=== PATIENT | female | born 1990 | race Two or more races ===

== ENCOUNTER 2022-05-26 14:29 | Inpatient (IN) | payer OTHER ==
[2022-05-26 16:22] LABS: Appearance,Urine Clear (Clear); Bilirubin,Urine Negative (Negative); Blood,Urine Large (Negative); Color,Urine Light Yellow; Glucose,Urine (UA) 4+ (Negative); Ketones,Urine Negative (Negative); Leukocyte Esterase,Urine Large (Negative); Mucus,Urine Rare /hpf; Nitrite,Urine Negative (Negative); Protein,Urine Negative (Negative); RBC,Urine 64 /hpf (0-5); Specific Gravity,Urine 1.023 (1.001-1.035); Squamous Epithelial Cell,Urine 2 /hpf (0-4); Urobilinogen,Urine <2.0 mg/dL (<2.0); WBC,Urine 61 /hpf (0-5)
[2022-05-26] MEDS ORDERED: ACETAMINOPHEN TAB 500 MG TAB PO STA (17:32)
--- NOTE | 2022-05-26 17:32 | ED ---
General Adult HPI - General Source: patient Mode of arrival: ambulatory Limitations: no limitations <Deedee Porter - Last Filed: 05/26/22 19:10> <Milton Morgan - Last Filed: 05/27/22 00:17> - General Chief complaint: Dizziness Stated complaint: hypotension, rx change - History of Present Illness Initial comments: Patient is a pleasant 31-year-old female presenting to the emergency room at the [facility] [place] where she is currently staying to undergo intense counseling. She has been drinking drug free since 04/16/2022. 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 She is complaining of dizziness, headache and excessive bleeding on her menstrual cycle currently with large clots ongoing for the last 3 days. She is currently on Eliquis. 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 She reports that she has been advised that she has multiple blood clots including in her coronary vessels. In addition to her digoxin and Eliquis she is also on torsemide. She reports that she attempts to maintain good hydration however her client professional recommends that she is on a 2 L fluid restriction. She has been advised in the past that she should be wearing a LifeVest until she is able to obtain an LVAD and/or heart transplant if she is able to maintain her sobriety but at this time does not currently have a LifeVest intact. She does not have any implanted devices either. She denies any chest pain, shortness of breath, changes in mild lower extremity edema, abdominal pain, nausea, vomiting, dysuria or urinary frequency. She unfortunately has not been to this facility previously and now previous records are available for review. (Deedee Porter) - Related Data Home Medications Medication Instructions Recorded Confirmed Acetaminophen [Tylenol 8 Hour] 650 mg PO Q4H PRN MDD 1950MG 05/26/22 05/26/22 Apixaban [Eliquis] 5 mg PO BID 05/26/22 05/26/22 Calcium/Magnesium/Zinc/Vitamin D 1 tab PO TID PRN 05/26/22 05/26/22 Dapagliflozin Propanediol [Farxiga] 10 mg PO DAILY 05/26/22 05/26/22 Digoxin [Lanoxin] 125 mcg PO DAILY 05/26/22 05/26/22 Losartan Potassium [Cozaar] 25 mg PO DAILY 05/26/22 05/26/22 Spironolactone [Aldactone] 25 mg PO DAILY 05/26/22 05/26/22 Thiamine [Vitamin B-1] 100 mg PO DAILY 05/26/22 05/26/22 Torsemide [Demadex] 20 mg PO BID 05/26/22 05/26/22 guaiFENesin SYRUP 100MG/5ML 200 mg PO Q4H PRN 05/26/22 05/26/22 [Robitussin] Allergies Allergy/AdvReac Type Severity Reaction Status Date / Time No Known Allergies Allergy Verified 05/26/22 19:29 Review of Systems ROS Other: All systems not noted in ROS Statement are negative. <Deedee Porter - Last Filed: 05/26/22 19:10> ROS Other: All systems not noted in ROS Statement are negative. <Milton Morgan - Last Filed: 05/27/22 00:17> ROS Statement: Those systems with pertinent positive or pertinent negative responses have been documented in the HPI. Past Medical History Past Medical History: Heart Failure History of Any Multi-Drug Resistant Organisms: None Reported Past Surgical History: Section Past Psychological History: No Psychological Hx Reported Smoking Status: Current every day smoker Past Alcohol Use History: None Reported Past Drug Use History: None Reported <Deedee Porter - Last Filed: 05/26/22 19:10> - Past Family History Father Family Medical History: Unable to Obtain Mother Family Medical History: Unable to Obtain <Milton Morgan - Last Filed: 05/27/22 00:17> General Exam Limitations: no limitations General appearance: alert Head exam: Present: atraumatic, normocephalic, normal inspection Eye exam: Present: normal appearance, PERRL, EOMI. Absent: scleral icterus, conjunctival injection, nystagmus, periorbital swelling ENT exam: Present: normal exam, mucous membranes moist Neck exam: Present: normal inspection, full ROM Respiratory exam: Present: normal lung sounds bilaterally. Absent: respiratory distress, wheezes, rales, rhonchi, stridor Cardiovascular Exam: Present: regular rate, normal rhythm, normal heart sounds, systolic murmur. Absent: diastolic murmur, rubs, gallop, clicks GI/Abdominal exam: Present: soft, normal bowel sounds. Absent: distended, tenderness, guarding, rebound, rigid Extremities exam: Present: pedal edema (Trace bilateral chronic) Back exam: Present: normal inspection Neurological exam: Present: alert, oriented X3, CN II-XII intact Psychiatric exam: Present: normal affect, normal mood Skin exam: Present: warm, dry, intact, normal color. Absent: rash <Deedee Porter - Last Filed: 05/26/22 19:10> Course Vital Signs 05/26/22 05/26/22 05/26/22 14:34 17:23 18:10 Temperature 97.5 F L Pulse Rate 86 92 98 Respiratory 16 18 16 Rate Blood Pressure 121/68 111/71 O2 Sat by Pulse 100 100 100 Oximetry 05/26/22 18:36 Temperature Pulse Rate Respiratory Rate Blood Pressure 129/81 O2 Sat by Pulse Oximetry Medical Decision Making - Lab Data Result diagrams: 05/26/22 18:29 05/26/22 17:34 <Deedee Porter - Last Filed: 05/26/22 19:10> - Lab Data Result diagrams: 05/26/22 18:29 05/26/22 17:34 <Milton Morgan - Last Filed: 05/27/22 00:17> - Medical Decision Making 31-year-old female presenting to the emergency room with complaints of headache, dizziness and increased uterine bleeding during her menses with clots. Patient significant comorbidities of heart failure and thrombosis. On torsemide, digoxin and Eliquis. Will begin extensive workup given past medical history and current medications with EKG, CBC, CMP, magnesium, troponin, d- dimer, proBNP and digoxin level. Urinalysis already completed prior to evaluation by provider demonstrating abnormalities consistent with menstruation. No leukoesterase or bacteria. Will give Tylenol for headache. Will hold any other medications at this time until laboratory results are available. EKG shows sinus rhythm with possible left atrial enlargement and right ventricular conduction delay likely baseline however comparison not available. Clinical hemoglobin results of 6.3. Type and cross and repeat ordered however patient reports that she is a [employer] and is unsure if she will be agreeable for transfusion. We will include iron studies with karthik. Discussed potential for iron transfusion. Patient reports that she will discuss this further with her mother. Patient currently resting comfortably in stable condition hemodynamically stable. Patient moved from waiting room to fast track and placed on a heart monitor. CODE STATUS a full code verified. Risks of no blood transfusion with cardiovascular history when hemoglobin is less than 8 reviewed with patient. She is currently aware that fatal complications of anemia with comorbid cardiovascular implications could result in . Menstrual cycle duration currently and typical length and had saturation reviewed at length with patient. Patient with excessive bleeding amounts greater than 3 days of typical course of bleeding with no evidence of slowing. Will obtain ultrasound of the uterus transvaginally. Patient is agreeable for iron transfusions. Awaiting both proBNP and iron study results along with chest x-ray for further medication administration. Spoke with Glen Heller with [facility] regarding need for symptomatic anemia admission and pending workup. He is accepting of admission. Will place consult to [employer] along with cardiology for further evaluation. Case discussed discussed with Dr. Morgan who will follow pending test as indicated above and order iron and fluids as needed. (Deedee Porter) Patient was admitted but I did follow-up on laboratory studies. Iron studies are still pending at this time. Patient's transvaginal ultrasound is read as being unremarkable. There is a right ovarian cyst but no evidence of acute pelvic process. Patient's chest x-ray as interpreted by myself reveals no acute cardiopulmonary process, infiltrate. Patient's laboratory studies remained relatively stable with a slight decrease in hemoglobin to 6.1 on repeat labs. As stated above, iron studies are still pending at this time. Patient has remained hemodynamically stable here in the emergency department. Vitals are within acceptable limits. We will continue with admission at this time with evaluation by [employer]ATOR. We will hold her Eliquis at this time as well. Patient's a [employer] and therefore does not accept blood products. We'll continue to monitor closely. (Milton Morgan) - Lab Data Lab Results 05/26/22 05/26/22 05/26/22 Range/Units 15:57 15:57 17:34 WBC 7.2 (3.8-10.6) k/uL RBC 2.62 L (3.80-5.40) m/uL Hgb 6.3 L* (11.4-16.0) gm/dL Hct 20.2 L (34.0-46.0) % MCV 77.2 L (80.0-100.0) fL MCH 24.0 L (25.0-35.0) pg MCHC 31.1 (31.0-37.0) g/dL RDW 19.1 H (11.5-15.5) % Plt Count 288 (150-450) k/uL MPV 9.2 Neutrophils % 71 % Lymphocytes % 22 % Monocytes % 4 % Eosinophils % 1 % Basophils % 0 % Neutrophils # 5.1 (1.3-7.7) k/uL Lymphocytes # 1.6 (1.0-4.8) k/uL Monocytes # 0.3 (0-1.0) k/uL Eosinophils # 0.0 (0-0.7) k/uL Basophils # 0.0 (0-0.2) k/uL Hypochromasia Marked Anisocytosis Slight Microcytosis Moderate Sodium (137-145) mmol/L Potassium (3.5-5.1) mmol/L Chloride (98-107) mmol/L Carbon Dioxide (22-30) mmol/L Anion Gap mmol/L BUN (7-17) mg/dL Creatinine (0.52-1.04) mg/dL Est GFR (CKD-EPI)AfAm (>60 ml/min/1.73 sqM) Est GFR (CKD-EPI)NonAf (>60 ml/min/1.73 sqM) Glucose (74-99) mg/dL Calcium (8.4-10.2) mg/dL Magnesium (1.6-2.3) mg/dL Iron (50-170) ug/dL TIBC (228-460) ug/dL % Saturation (12.00-45.00) Transferrin (204.0-354.0) mg/dL Total Bilirubin (0.2-1.3) mg/dL AST (14-36) U/L ALT (4-34) U/L Alkaline Phosphatase (38-126) U/L Troponin I (0.000-0.034) ng/mL NT-Pro-B Natriuret Pep pg/mL Total Protein (6.3-8.2) g/dL Albumin (3.5-5.0) g/dL Urine Color Light Yellow Urine Appearance Clear (Clear) Urine pH 6.0 (5.0-8.0) Ur Specific [place] 1.023 (1.001-1.035) Urine Protein Negative (Negative) Urine Glucose (UA) 4+ H (Negative) Urine Ketones Negative (Negative) Urine Blood Large H (Negative) Urine Nitrite Negative (Negative) Urine Bilirubin Negative (Negative) Urine Urobilinogen <2.0 (<2.0) mg/dL Ur Leukocyte Esterase Large H (Negative) Urine RBC 64 H (0-5) /hpf Urine WBC 61 H (0-5) /hpf Ur Squamous Epith Cells 2 (0-4) /hpf Urine Mucus Rare H (None) /hpf Urine HCG, Qual Not Detected (Not Detectd) Digoxin ng/mL Blood Type Blood Type Confirm Blood Type Recheck Bld Type Recheck Status Antibody Screen Spec Expiration Date 05/26/22 05/26/22 05/26/22 Range/Units 17:34 17:34 17:34 WBC (3.8-10.6) k/uL RBC (3.80-5.40) m/uL Hgb (11.4-16.0) gm/dL Hct (34.0-46.0) % MCV (80.0-100.0) fL MCH (25.0-35.0) pg MCHC (31.0-37.0) g/dL RDW (11.5-15.5) % Plt Count (150-450) k/uL MPV Neutrophils % % Lymphocytes % % Monocytes % % Eosinophils % % Basophils % % Neutrophils # (1.3-7.7) k/uL Lymphocytes # (1.0-4.8) k/uL Monocytes # (0-1.0) k/uL Eosinophils # (0-0.7) k/uL Basophils # (0-0.2) k/uL Hypochromasia Anisocytosis Microcytosis Sodium 135 L (137-145) mmol/L Potassium 3.7 (3.5-5.1) mmol/L Chloride 102 (98-107) mmol/L Carbon Dioxide 27 (22-30) mmol/L Anion Gap 6 mmol/L BUN 13 (7-17) mg/dL Creatinine 0.54 (0.52-1.04) mg/dL Est GFR (CKD-EPI)AfAm >90 (>60 ml/min/1.73 sqM) Est GFR (CKD-EPI)NonAf >90 (>60 ml/min/1.73 sqM) Glucose 110 H (74-99) mg/dL Calcium 8.2 L (8.4-10.2) mg/dL Magnesium 2.1 (1.6-2.3) mg/dL Iron 17 L (50-170) ug/dL TIBC 477 H (228-460) ug/dL % Saturation 3.60 L (12.00-45.00) Transferrin 341.0 (204.0-354.0) mg/dL Total Bilirubin <0.1 L (0.2-1.3) mg/dL AST 28 (14-36) U/L ALT 23 (4-34) U/L Alkaline Phosphatase 86 (38-126) U/L Troponin I <0.012 (0.000-0.034) ng/mL NT-Pro-B Natriuret Pep 553 pg/mL Total Protein 5.8 L (6.3-8.2) g/dL Albumin 3.5 (3.5-5.0) g/dL Urine Color Urine Appearance (Clear) Urine pH (5.0-8.0) Ur Specific [place] (1.001-1.035) Urine Protein (Negative) Urine Glucose (UA) (Negative) Urine Ketones (Negative) Urine Blood (Negative) Urine Nitrite (Negative) Urine Bilirubin (Negative) Urine Urobilinogen (<2.0) mg/dL Ur Leukocyte Esterase (Negative) Urine RBC (0-5) /hpf Urine WBC (0-5) /hpf Ur Squamous Epith Cells (0-4) /hpf Urine Mucus (None) /hpf Urine HCG, Qual (Not Detectd) Digoxin 0.6 ng/mL Blood Type Blood Type Confirm Blood Type Recheck Bld Type Recheck Status Antibody Screen Spec Expiration Date 05/26/22 05/26/22 05/26/22 Range/Units 18:25 18:27 18:29 WBC 7.8 (3.8-10.6) k/uL RBC 2.59 L (3.80-5.40) m/uL Hgb 6.1 L* (11.4-16.0) gm/dL Hct 20.1 L (34.0-46.0) % MCV 77.4 L (80.0-100.0) fL MCH 23.5 L (25.0-35.0) pg MCHC 30.4 L (31.0-37.0) g/dL RDW 19.0 H (11.5-15.5) % Plt Count 303 (150-450) k/uL MPV 8.4 Neutrophils % 65 % Lymphocytes % 24 % Monocytes % 6 % Eosinophils % 1 % Basophils % 1 % Neutrophils # 5.1 (1.3-7.7) k/uL Lymphocytes # 1.9 (1.0-4.8) k/uL Monocytes # 0.5 (0-1.0) k/uL Eosinophils # 0.1 (0-0.7) k/uL Basophils # 0.1 (0-0.2) k/uL Hypochromasia Marked Anisocytosis Slight Microcytosis Slight Sodium (137-145) mmol/L Potassium (3.5-5.1) mmol/L Chloride (98-107) mmol/L Carbon Dioxide (22-30) mmol/L Anion Gap mmol/L BUN (7-17) mg/dL Creatinine (0.52-1.04) mg/dL Est GFR (CKD-EPI)AfAm (>60 ml/min/1.73 sqM) Est GFR (CKD-EPI)NonAf (>60 ml/min/1.73 sqM) Glucose (74-99) mg/dL Calcium (8.4-10.2) mg/dL Magnesium (1.6-2.3) mg/dL Iron (50-170) ug/dL TIBC (228-460) ug/dL % Saturation (12.00-45.00) Transferrin (204.0-354.0) mg/dL Total Bilirubin (0.2-1.3) mg/dL AST (14-36) U/L ALT (4-34) U/L Alkaline Phosphatase (38-126) U/L Troponin I (0.000-0.034) ng/mL NT-Pro-B Natriuret Pep pg/mL Total Protein (6.3-8.2) g/dL Albumin (3.5-5.0) g/dL Urine Color Urine Appearance (Clear) Urine pH (5.0-8.0) Ur Specific [place] (1.001-1.035) Urine Protein (Negative) Urine Glucose (UA) (Negative) Urine Ketones (Negative) Urine Blood (Negative) Urine Nitrite (Negative) Urine Bilirubin (Negative) Urine Urobilinogen (<2.0) mg/dL Ur Leukocyte Esterase (Negative) Urine RBC (0-5) /hpf Urine WBC (0-5) /hpf Ur Squamous Epith Cells (0-4) /hpf Urine Mucus (None) /hpf Urine HCG, Qual (Not Detectd) Digoxin ng/mL Blood Type O Positive Blood Type Confirm O Positive Blood Type Recheck No Previous Record Bld Type Recheck Status CABO Indicated Antibody Screen NEGATIVE Spec Expiration Date 05/29/2022 - 2326 - EKG Data EKG Comments: EKG completed at 1723 interpreted by me demonstrates sinus rhythm, possible left atrial enlargement, possible right ventricular conduction delay, ventricular rate 80 bpm, UT interval 175 ms, QRS duration 102 ms, QT/QTC 380/426 ms, PRT axes 25, -20, 49 (Deedee Porter) Disposition Is patient prescribed a controlled substance at d/c from ED?: No Time of Disposition: 19:12 <Deedee Proter - Last Filed: 05/26/22 19:10> <Milton Morgan - Last Filed: 05/27/22 00:17> Clinical Impression: Symptomatic anemia, Dysfunctional uterine bleeding Disposition: ADMITTED IP TO THIS HOSP Condition: Serious
[2022-05-26 17:40] LABS: Anisocytosis Slight; Basophils % (A) 0 %; Eosinophils % (A) 1 %; HCT 20.2 % (34.0-46.0); Hypochromasia Marked; Lymphocytes # (A) 1.6 k/uL (1.0-4.8); Lymphocytes % (A) 22 %; MCHC 31.1 g/dL (31.0-37.0); MCV 77.2 fL (80.0-100.0); Mean Platelet Volume 9.2; Microcytosis Moderate; Monocytes # (A) 0.3 k/uL (0-1.0); Monocytes % (A) 4 %; Neutrophils # (A) 5.1 k/uL (1.3-7.7); Neutrophils % (A) 71 %; Platelet Count 288 k/uL (150-450); RBC 2.62 m/uL (3.80-5.40); RDW 19.1 % (11.5-15.5); WBC 7.2 k/uL (3.8-10.6)
[2022-05-26 17:43] LABS: HGB 6.3 gm/dL (11.4-16.0)
[2022-05-26 18:09] LABS: ALT 23 U/L (4-34); AST 28 U/L (14-36); African American GFR (CKD) >90 (>60 ml/min/1.73 sqM); Albumin 3.5 g/dL (3.5-5.0); Alkaline Phosphatase 86 U/L (38-126); Anion Gap 6 mmol/L; Blood Urea Nitrogen 13 mg/dL (7-17); Calcium 8.2 mg/dL (8.4-10.2); Carbon Dioxide 27 mmol/L (22-30); Chloride 102 mmol/L (98-107); Digoxin 0.6 ng/mL; Glucose 110 mg/dL (74-99); Magnesium 2.1 mg/dL (1.6-2.3); Non-African American GFR(CKD) >90 (>60 ml/min/1.73 sqM); Potassium 3.7 mmol/L (3.5-5.1); Sodium 135 mmol/L (137-145); Total Bilirubin <0.1 mg/dL (0.2-1.3); Total Protein 5.8 g/dL (6.3-8.2)
[2022-05-26 18:59] LABS: Anisocytosis Slight; Basophils # (A) 0.1 k/uL (0-0.2); Basophils % (A) 1 %; Eosinophils # (A) 0.1 k/uL (0-0.7); Eosinophils % (A) 1 %; HCT 20.1 % (34.0-46.0); HGB 6.1 gm/dL (11.4-16.0); Hypochromasia Marked; Lymphocytes # (A) 1.9 k/uL (1.0-4.8); Lymphocytes % (A) 24 %; MCH 23.5 pg (25.0-35.0); MCHC 30.4 g/dL (31.0-37.0); MCV 77.4 fL (80.0-100.0); Mean Platelet Volume 8.4; Microcytosis Slight; Monocytes # (A) 0.5 k/uL (0-1.0); Monocytes % (A) 6 %; Neutrophils # (A) 5.1 k/uL (1.3-7.7); Neutrophils % (A) 65 %; Platelet Count 303 k/uL (150-450); RBC 2.59 m/uL (3.80-5.40); WBC 7.8 k/uL (3.8-10.6)
[2022-05-26] MEDS ORDERED: NALOXONE 0.4 MG/ML 1 ML VIAL IV PRN (18:59)
--- NOTE | 2022-05-26 19:36 | XR ---
EXAMINATION TYPE: XR chest 2V DATE OF EXAM: 05/26/2022 7:11 PM COMPARISON: Chest radiographs from TECHNIQUE: XR chest 2V Frontal and lateral views of the chest. CLINICAL INDICATION:Female, 31 years old with history of lightheaded; FINDINGS: Lungs/Pleura: There is no evidence of pleural effusion, focal consolidation, or pneumothorax. Pulmonary vascularity: Unremarkable. Heart/mediastinum: Cardiomediastinal silhouette is prominent in size. Musculoskeletal: No acute osseous pathology. IMPRESSION: 1. No acute cardiopulmonary disease/process. 2. Cardiomegaly
--- NOTE | 2022-05-26 19:37 | US ---
EXAMINATION TYPE: US transvaginal DATE OF EXAM: 05/26/2022 COMPARISON: NONE CLINICAL HISTORY: Prolonged uterine bleeding with excessive clots. Patient states she has been having her period for 8 days with excessive clots. TECHNIQUE: Transvaginal sonographic images of the pelvis were acquired. Date of LMP: 05/19/22 EXAM MEASUREMENTS: Uterus: 9.1 x 5.4 x 4.6 cm Endometrial Stripe: 0.7 cm Right Ovary: 4.6 x 4.4 x 3.2 cm Left Ovary: Not vis 1. Uterus: Anteverted wnl 2. Endometrium: wnl 3. Right Ovary: Cyst seen measuring 3.5 x 2.6 x 2.5cm 4. Left Ovary: Obscured by overlying bowel gas Spectral, color and waveform doppler imaging shows good arterial and venous flow within the ovaries ; there is no evidence for ovarian torsion. 5. Bilateral Adnexa: peristalsing bowel visualized in bilateral adnexas 6. Posterior cul-de-sac: wnl IMPRESSION: 1. No evidence for acute pelvic process. 2. Right ovarian cyst measuring up to 3.5 cm.
[2022-05-26] MEDS: ACETAMINOPHEN TAB 325 MG TAB PO PRN (21:41)
[2022-05-26 23:34] LABS: Iron 17 ug/dL (50-170); Total Iron Binding Capacity 477 ug/dL (228-460)
[2022-05-27] MEDS ORDERED: IRON DEXTRAN 100 MG/2 ML VIAL IV STA (00:38)
[2022-05-27] MEDS ORDERED: IRON DEXTRAN 1,000 MG in SODIUM CHLORIDE 0.9% 250 ML IV ONE (01:00)
[2022-05-27] MEDS: THIAMINE 100 MG TAB PO SCH (09:21)
[2022-05-27] MEDS: SPIRONOLACTONE 25 MG TAB PO SCH (09:21)
[2022-05-27] MEDS: LOSARTAN 25 MG TAB PO SCH (09:21)
[2022-05-27] MEDS: DIGOXIN 125 MCG TAB PO SCH (09:21)
[2022-05-27] MEDS: TORSEMIDE 20 MG TAB PO SCH ×2 (09:22→19:58)
[2022-05-27] MEDS: DAPAGLIFLOZIN PROPANEDIOL 10 MG TABLET PO SCH (09:22)
[2022-05-27 09:34] LABS: Anisocytosis Slight; Basophils % (A) 0 %; Eosinophils # (A) 0.1 k/uL (0-0.7); Eosinophils % (A) 1 %; Hypochromasia Marked; Lymphocytes # (A) 1.2 k/uL (1.0-4.8); Lymphocytes % (A) 25 %; MCH 23.4 pg (25.0-35.0); MCHC 30.2 g/dL (31.0-37.0); MCV 77.6 fL (80.0-100.0); Mean Platelet Volume 8.5; Microcytosis Moderate; Monocytes # (A) 0.2 k/uL (0-1.0); Monocytes % (A) 5 %; Neutrophils # (A) 3.1 k/uL (1.3-7.7); Neutrophils % (A) 65 %; Platelet Count 294 k/uL (150-450); RBC 2.46 m/uL (3.80-5.40); RDW 19.2 % (11.5-15.5); WBC 4.7 k/uL (3.8-10.6)
[2022-05-27 09:40] LABS: African American GFR (CKD) >90 (>60 ml/min/1.73 sqM); Anion Gap 2 mmol/L; Blood Urea Nitrogen 7 mg/dL (7-17); Calcium 7.9 mg/dL (8.4-10.2); Carbon Dioxide 26 mmol/L (22-30); Chloride 107 mmol/L (98-107); Glucose 99 mg/dL (74-99); HCT 19.1 % (34.0-46.0); Non-African American GFR(CKD) >90 (>60 ml/min/1.73 sqM); Potassium 3.8 mmol/L (3.5-5.1); Sodium 135 mmol/L (137-145)
[2022-05-27 10:06] LABS: HGB 5.8 gm/dL (11.4-16.0)
--- NOTE | 2022-05-27 11:02 | P.CRDCN ---
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 Nikki Mark and Dr. Jacky Jimenez out of [place]. She has a history of cardiomyopathy, "clot around my heart" for which she is on Eliquis, methamphetamine and alcohol abuse last used 04/16/2022. She has been worked up at [facility] and [facility] was also [facility] in [place] last year at which time she was diagnosed with cardiomyopathy. She denies history of coronary artery disease. She was initially ordered a LifeVest while being worked up for LVAD/heart transplant however needed to be clean prior to undergoing. Initially quit drinking and using meth however relapsed at which time she quit taking her Eliquis. In April she resumed her Eliquis. Since then she has been having issues with menorrhagia. She is currently at [facility] for rehab/therapy since the beginning of this month. She been complaining of dizziness, weakness, fatigue and overall not feeling well with some orthopnea and minimal abdominal bloating over the last few days. Upon presentation hemoglobin was 6.3 with a repeat of 6.1. She underwent transvaginal ultrasound which showed no evidence for acute pelvic process, right ovarian cyst measuring up to 3.5 cm. And given iron infusion. The patient is Sikh and does not accept blood products. She is currently on losartan, Farxiga, digoxin, torsemide and aldactone. Blood pressure is running on the low side. Labs show normal renal function. NT proBNP is 553. His x-ray shows no acute cardiopulmonary disease/process with cardiomegaly. On examination she is resting comfortably on a stretcher in the emergency department. She is overall feeling tired and somewhat weak. She is complaining of some dizziness. Denies any chest pain. Has not had any palpitations. Feeling dizzy and lightheaded but denies any syncope or near syncope. Denies any lower extremity edema however feels she is somewhat bloated in her abdomen which is where she typically holds fluid. Past Medical History Past Medical History: Heart Failure History of Any Multi-Drug Resistant Organisms: None Reported Past Surgical History: Section Past Psychological History: No Psychological Hx Reported Smoking Status: Current every day smoker Past Alcohol Use History: None Reported Additional Past Alcohol Use History / Comment(s): previous ETOH use and Meth- in rehab Past Drug Use History: None Reported - Past Family History Father Family Medical History: Unable to Obtain Mother Family Medical History: Unable to Obtain Medications and Allergies Home Medications Medication Instructions Recorded Confirmed Type Acetaminophen [Tylenol 8 Hour] 650 mg PO Q4H PRN MDD 1950MG 05/26/22 05/26/22 History Apixaban [Eliquis] 5 mg PO BID 05/26/22 05/26/22 History Calcium/Magnesium/Zinc/Vitamin D 1 tab PO TID PRN 05/26/22 05/26/22 History Dapagliflozin Propanediol [Farxiga] 10 mg PO DAILY 05/26/22 05/26/22 History Digoxin [Lanoxin] 125 mcg PO DAILY 05/26/22 05/26/22 History Losartan Potassium [Cozaar] 25 mg PO DAILY 05/26/22 05/26/22 History Spironolactone [Aldactone] 25 mg PO DAILY 05/26/22 05/26/22 History Thiamine [Vitamin B-1] 100 mg PO DAILY 05/26/22 05/26/22 History Torsemide [Demadex] 20 mg PO BID 05/26/22 05/26/22 History guaiFENesin SYRUP 100MG/5ML 200 mg PO Q4H PRN 05/26/22 05/26/22 History [Robitussin] Allergies Allergy/AdvReac Type Severity Reaction Status Date / Time No Known Allergies Allergy Verified 05/26/22 19:29 Physical Exam Vitals: Vital Signs Temp Pulse Pulse Resp BP BP Pulse Ox 05/27/22 09:14 87 18 98/62 100 05/27/22 04:00 98.3 F 81 18 96/61 100 05/27/22 02:00 81 18 05/27/22 00:00 97.9 F 90 18 99/59 100 05/26/22 18:36 129/81 05/26/22 18:10 98 16 100 05/26/22 17:23 92 18 111/71 100 05/26/22 14:34 97.5 F L 86 16 121/68 100 Intake and Output 05/26/22 05/27/22 05/27/22 22:59 06:59 14:59 Other: Voiding Method Toilet # Voids 1 1 Weight 76.204 kg PHYSICAL EXAMINATION: This is a 31-year-old female in no apparent distress at the time of my examination. HEENT: Head is atraumatic, normocephalic. Pupils are equal, round. Sclerae anicteric. Conjunctivae are clear. Mucous membranes of the mouth are moist. Neck is supple. There is no elevated jugular venous pressure. No carotid bruit is heard. CHEST EXAMINATION: Clear to auscultation bilaterally. No wheezes rales or rhonchi. Respirations even and nonlabored. HEART EXAMINATION: Heart regular, positive S1 and S2. No S3. No S4. With a soft systolic murmur. ABDOMEN: Soft, nontender. Bowel sounds are heard. No organomegaly noted. EXTREMITIES: 2+ peripheral pulses with no evidence of peripheral edema and no calf tenderness noted. NEUROLOGIC EXAMINATION: Patient is awake, alert and oriented x3. Results 05/27/22 09:19 05/27/22 09:19 Cardiac Enzymes 05/26/22 05/26/22 Range/Units 17:34 17:34 AST 28 (14-36) U/L Troponin I <0.012 (0.000-0.034) ng/mL CBC 05/26/22 05/26/22 Range/Units 17:34 18:29 WBC 7.2 7.8 (3.8-10.6) k/uL RBC 2.62 L 2.59 L (3.80-5.40) m/uL Hgb 6.3 L* 6.1 L* (11.4-16.0) gm/dL Hct 20.2 L 20.1 L (34.0-46.0) % Plt Count 288 303 (150-450) k/uL Comprehensive Metabolic Panel 05/26/22 Range/Units 17:34 Sodium 135 L (137-145) mmol/L Potassium 3.7 (3.5-5.1) mmol/L Chloride 102 (98-107) mmol/L Carbon Dioxide 27 (22-30) mmol/L BUN 13 (7-17) mg/dL Creatinine 0.54 (0.52-1.04) mg/dL Glucose 110 H (74-99) mg/dL Calcium 8.2 L (8.4-10.2) mg/dL AST 28 (14-36) U/L ALT 23 (4-34) U/L Alkaline Phosphatase 86 (38-126) U/L Total Protein 5.8 L (6.3-8.2) g/dL Albumin 3.5 (3.5-5.0) g/dL Current Medications Generic Name Dose Route Start Last Admin Trade Name Freq PRN Reason Stop Dose Admin Acetaminophen 650 mg 05/26/22 18:59 05/26/22 21:41 Acetaminophen Tab 325 Mg Tab PO 650 mg Q6HR PRN Administration Mild Pain or Fever > 100.5 Dapagliflozin 10 mg 05/27/22 09:00 05/27/22 09:22 Dapagliflozin Propanediol 10 Mg Tablet PO 10 mg DAILY PIERRE Administration Digoxin 125 mcg 05/27/22 09:00 05/27/22 09:21 Digoxin 125 Mcg Tab PO 125 mcg DAILY PIERRE Administration Losartan Potassium 25 mg 05/27/22 09:00 05/27/22 09:21 Losartan 25 Mg Tab PO 25 mg DAILY PIERRE Administration Naloxone HCl 0.2 mg 05/26/22 18:59 Naloxone 0.4 Mg/Ml 1 Ml Vial IV Q2M PRN Opioid Reversal Spironolactone 25 mg 05/27/22 09:00 05/27/22 09:21 Spironolactone 25 Mg Tab PO 25 mg DAILY PIERRE Administration Thiamine HCl 100 mg 05/27/22 09:00 05/27/22 09:21 Thiamine 100 Mg Tab PO 100 mg DAILY PIERRE Administration Torsemide 20 mg 05/27/22 09:00 05/27/22 09:22 Torsemide 20 Mg Tab PO 20 mg BID PIERRE Administration Intake and Output 05/26/22 05/27/22 05/27/22 22:59 06:59 14:59 Other: Voiding Method Toilet # Voids 1 1 Weight 76.204 kg 05/26/22 18:29 05/26/22 17:34 Assessment and Plan Assessment: #1 anemia secondary to menorrhagia, on Eliquis #2 history of cardiomyopathy, likely nonischemic #3 possible history of apical thrombus #4 substance abuse disorder, currently in remission Plan: From cardiology's perspective we will continue to hold Eliquis for now. Will obtain records from her primary phototypesetting equipment monitor as well as [facility] and [facility] in [place]. We'll obtain a 2-D echo with Doppler study to a ssess cardiac structure and function. Continue losartan, Aldactone, digoxin, and Farxiga as well as torsemide. She may benefit from the addition of beta dede however we will obtain records and monitor blood pressure. Discussed with the patient importance of blood transfusion the patient continues to decline at this time due to mormonism beliefs. Further recommendations to follow. ANESTHESIOLOGY TECH note has been reviewed, I agree with a documented findings and plan of care. Patient was seen and examined.
[2022-05-27] MEDS ORDERED: ONDANSETRON ODT 4 MG TAB PO PRN (13:44)
--- NOTE | 2022-05-27 13:56 | P.HPIM ---
History of Present Illness H&P Date: 05/27/22 This is a 31-year-old female with medical history significant for heart failure with low EF, reports of having multiple clots "around her heart", current daily smoker. She is anticoagulated with eliquis and currently on torsemide and digoxin. Maintained on 2L fluid restriction daily. Supposed to be wearing a lifevest pending LVAD/heart transplant once she is sober. Patient states she has been using IV drugs since around the age 24. She has 4 children, and has had miscarriage in the past. History of tubal ligation. She was diagnosed with cardiomyopathy about 1 year ago in [facility], and now follows with a ruling technician Dr Mark and Dr. Jimenez out of [place]. Has history of meth and alcohol abuse and is currently receiving treatment at [facility]. Has been sober since April 16, 2022. Patient presents to the hospital from [facility] rehab facility with concern for dizziness, headache, and excessive vaginal bleeding with clots which she is currently on her menstrual cycle. Patient states the clots have been going on for the last 3 days and has been soaking through her clothes. She stopped her eliquis and began taking it in April again. Patient states she had not had a menstrual period for 2 months prior to this episode of bleeding. Currently sexually active not using condoms and not on oral contraception. Onset of menses around age 10 and has been fairly regular since. Denies chest pain denies shortness of breath, no fever or chills. Transvaginal ultrasound is done showing no acute pelvic process, right ovarian cyst is measuring up to 3.5 cm. Chest xray is negative. EKG showing sinus rhythm with heart rate of 88, there is no specific T wave or ST changes. Patient presents with hemoglobin of 6.3 with platelet count of 288. Iron studies are completed showing iron 17, TIBC 477, transferrin 344. Troponin is negative and proBNP 553. Suspect dizziness and lightheadedness are secondary to acute blood loss. Blood pressure 99/61. Patient received 1 dose of IV iron in the EC. She is a Jehovahs Witness and does not accept blood products. IV ferrlecit x 2 more days has been ordered and patient will need to be on oral ferrous sulfate on discharge. She has some dizziness while ambulating. REVIEW OF SYSTEMS: CONSTITUTIONAL: No fever, no malaise, no fatigue. HEENT: No recent visual problems or hearing problems. Denied any sore throat. CARDIOVASCULAR: No chest pain, orthopnea, PND, no palpitations, no syncope. PULMONARY: No shortness of breath, no cough, no hemoptysis. GASTROINTESTINAL: No diarrhea, no nausea, no vomiting, no abdominal pain. NEUROLOGICAL: No headaches, no weakness, no numbness. HEMATOLOGICAL: Denies any bleeding or petechiae. GENITOURINARY: Denies any burning micturition, frequency, or urgency. Reports menstrual period with clots and excessive bleeding. MUSCULOSKELETAL/RHEUMATOLOGICAL: Denies any joint pain, swelling, or any muscle pain. ENDOCRINE: Denies any polyuria or polydipsia. The rest of the 14-point review of systems is negative. PHYSICAL EXAMINATION: GENERAL: The patient is alert and oriented x3, not in any acute distress. Well developed, well nourished. HEENT: Pupils are round and equally reacting to light. EOMI. No scleral icterus. No conjunctival pallor. Normocephalic, atraumatic. No pharyngeal erythema. No thyromegaly. CARDIOVASCULAR: S1 and S2 present. No murmurs, rubs, or gallops. PULMONARY: Chest is clear to auscultation, no wheezing or crackles. ABDOMEN: Soft, nontender, nondistended, normoactive bowel sounds. No palpable organomegaly. MUSCULOSKELETAL: No joint swelling or deformity. EXTREMITIES: No cyanosis, clubbing, or pedal edema. NEUROLOGICAL: Gross neurological examination did not reveal any focal deficits. SKIN: No rashes. Assessment and plan Assessment Dizziness lightheadedness secondary to acute blood loss Anemia microcytic secondary to menorrhagia on eliquis Menorrhagia History of cardiomyopathy, unknown EF at this time Possible history of apical thrombus Substance abuse disorder currently maintaining sobriety Daily tobacco use DVT prophylaxis: Eliquis currently on hold secondary to anemia GI prophylaxis: Protonix Full Code Plan Refusing blood products risks were discussed in detail with patient IV ferrlecit x 2 days Cushion Worker consultation Continue digoxin, spironolactone, torsemide Continue with 2L flluid restriction Cardiology consultation Check qualitative HCG level. The impression and plan of care has been dictated by Lizett Mariee, Nurse Practitioner as directed. Dr. Kimberli MD I have performed a history and physical examination and medical decision making of this patient, discussed the same with the dictator, and agree with the dictators assessment and plan as written, documented as a scribe. Based on total visit time, I have performed more than 50% of this visit. Past Medical History Past Medical History: Heart Failure History of Any Multi-Drug Resistant Organisms: None Reported Past Surgical History: Section Past Psychological History: No Psychological Hx Reported Smoking Status: Current every day smoker Past Alcohol Use History: None Reported Additional Past Alcohol Use History / Comment(s): previous ETOH use and Meth- in rehab Past Drug Use History: None Reported - Past Family History Father Family Medical History: Unable to Obtain Mother Family Medical History: Unable to Obtain Medications and Allergies Home Medications Medication Instructions Recorded Confirmed Type Acetaminophen [Tylenol 8 Hour] 650 mg PO Q4H PRN MDD 1950MG 05/26/22 05/26/22 History Apixaban [Eliquis] 5 mg PO BID 05/26/22 05/26/22 History Calcium/Magnesium/Zinc/Vitamin D 1 tab PO TID PRN 05/26/22 05/26/22 History Dapagliflozin Propanediol [Farxiga] 10 mg PO DAILY 05/26/22 05/26/22 History Digoxin [Lanoxin] 125 mcg PO DAILY 05/26/22 05/26/22 History Losartan Potassium [Cozaar] 25 mg PO DAILY 05/26/22 05/26/22 History Spironolactone [Aldactone] 25 mg PO DAILY 05/26/22 05/26/22 History Thiamine [Vitamin B-1] 100 mg PO DAILY 05/26/22 05/26/22 History Torsemide [Demadex] 20 mg PO BID 05/26/22 05/26/22 History guaiFENesin SYRUP 100MG/5ML 200 mg PO Q4H PRN 05/26/22 05/26/22 History [Robitussin] Allergies Allergy/AdvReac Type Severity Reaction Status Date / Time No Known Allergies Allergy Verified 05/26/22 19:29 Physical Exam Vitals: Vital Signs Temp Pulse Pulse Resp BP BP Pulse Ox 05/27/22 04:00 98.3 F 81 18 96/61 100 05/27/22 02:00 81 18 05/27/22 00:00 97.9 F 90 18 99/59 100 05/26/22 18:36 129/81 05/26/22 18:10 98 16 100 05/26/22 17:23 92 18 111/71 100 05/26/22 14:34 97.5 F L 86 16 121/68 100 Intake and Output 05/26/22 05/27/22 05/27/22 22:59 06:59 14:59 Other: Voiding Method Toilet # Voids 1 1 Weight 76.204 kg Results CBC & Chem 7: 05/27/22 09:19 05/27/22 09:19 Labs: Abnormal Lab Results - Last 24 Hours (Table) 05/26/22 05/26/22 05/26/22 Range/Units 15:57 17:34 17:34 RBC 2.62 L (3.80-5.40) m/uL Hgb 6.3 L* (11.4-16.0) gm/dL Hct 20.2 L (34.0-46.0) % MCV 77.2 L (80.0-100.0) fL MCH 24.0 L (25.0-35.0) pg MCHC (31.0-37.0) g/dL RDW 19.1 H (11.5-15.5) % Sodium 135 L (137-145) mmol/L Glucose 110 H (74-99) mg/dL Calcium 8.2 L (8.4-10.2) mg/dL Iron 17 L (50-170) ug/dL TIBC 477 H (228-460) ug/dL % Saturation 3.60 L (12.00-45.00) Total Bilirubin <0.1 L (0.2-1.3) mg/dL Total Protein 5.8 L (6.3-8.2) g/dL Urine Glucose (UA) 4+ H (Negative) Urine Blood Large H (Negative) Ur Leukocyte Esterase Large H (Negative) Urine RBC 64 H (0-5) /hpf Urine WBC 61 H (0-5) /hpf Urine Mucus Rare H (None) /hpf 05/26/22 Range/Units 18:29 RBC 2.59 L (3.80-5.40) m/uL Hgb 6.1 L* (11.4-16.0) gm/dL Hct 20.1 L (34.0-46.0) % MCV 77.4 L (80.0-100.0) fL MCH 23.5 L (25.0-35.0) pg MCHC 30.4 L (31.0-37.0) g/dL RDW 19.0 H (11.5-15.5) % Sodium (137-145) mmol/L Glucose (74-99) mg/dL Calcium (8.4-10.2) mg/dL Iron (50-170) ug/dL TIBC (228-460) ug/dL % Saturation (12.00-45.00) Total Bilirubin (0.2-1.3) mg/dL Total Protein (6.3-8.2) g/dL Urine Glucose (UA) (Negative) Urine Blood (Negative) Ur Leukocyte Esterase (Negative) Urine RBC (0-5) /hpf Urine WBC (0-5) /hpf Urine Mucus (None) /hpf Microbiology - Last 24 Hours (Table) 05/26/22 15:57 Urine Culture - Preliminary Urine,Voided Assessment and Plan Time with Patient: Greater than 30
[2022-05-27] MEDS: ACETAMINOPHEN TAB 325 MG TAB PO PRN (15:01)
[2022-05-27] MEDS: NICOTINE 14MG/24HR PATCH TRANSDERM SCH (15:02)
[2022-05-28 04:28] LABS: Anisocytosis Slight; HCT 23.8 % (34.0-46.0); Hypochromasia Marked; MCH 25.4 pg (25.0-35.0); MCHC 31.6 g/dL (31.0-37.0); MCV 80.4 fL (80.0-100.0); Mean Platelet Volume 8.7; Microcytosis Slight; Platelet Count 298 k/uL (150-450); Poikilocytosis Slight; RBC 2.96 m/uL (3.80-5.40); RDW 18.5 % (11.5-15.5); WBC 7.6 k/uL (3.8-10.6)
[2022-05-28 04:40] LABS: HGB 7.5 gm/dL (11.4-16.0)
[2022-05-28 08:35] LABS: Anisocytosis Slight; Basophils % (A) 0 %; Eosinophils # (A) 0.1 k/uL (0-0.7); Eosinophils % (A) 1 %; HCT 24.7 % (34.0-46.0); HGB 7.5 gm/dL (11.4-16.0); Hypochromasia Marked; Lymphocytes # (A) 0.8 k/uL (1.0-4.8); Lymphocytes % (A) 13 %; MCH 24.3 pg (25.0-35.0); MCHC 30.2 g/dL (31.0-37.0); MCV 80.6 fL (80.0-100.0); Mean Platelet Volume 8.5; Microcytosis Slight; Monocytes # (A) 0.3 k/uL (0-1.0); Monocytes % (A) 4 %; Neutrophils # (A) 5.4 k/uL (1.3-7.7); Neutrophils % (A) 80 %; Platelet Count 305 k/uL (150-450); Poikilocytosis Slight; RBC 3.07 m/uL (3.80-5.40); RDW 18.8 % (11.5-15.5); WBC 6.7 k/uL (3.8-10.6)
[2022-05-28 08:54] LABS: African American GFR (CKD) >90 (>60 ml/min/1.73 sqM); Anion Gap 3 mmol/L; Blood Urea Nitrogen 8 mg/dL (7-17); Calcium 8.2 mg/dL (8.4-10.2); Carbon Dioxide 26 mmol/L (22-30); Chloride 107 mmol/L (98-107); Glucose 134 mg/dL (74-99); Non-African American GFR(CKD) >90 (>60 ml/min/1.73 sqM); Sodium 136 mmol/L (137-145)
[2022-05-28] MEDS: SODIUM FERRIC GLUCONAT-SUCROSE 125 MG in SODIUM CHLORIDE 0.9% 100 ML IVPB SCH (10:29)
[2022-05-28] MEDS: THIAMINE 100 MG TAB PO SCH (10:30)
[2022-05-28] MEDS: LOSARTAN 25 MG TAB PO SCH (10:30)
[2022-05-28] MEDS: DIGOXIN 125 MCG TAB PO SCH (10:30)
[2022-05-28] MEDS: ACETAMINOPHEN TAB 325 MG TAB PO PRN ×2 (10:30→16:45)
[2022-05-28] MEDS: NICOTINE 14MG/24HR PATCH TRANSDERM SCH (10:30)
[2022-05-28] MEDS: SPIRONOLACTONE 25 MG TAB PO SCH (10:30)
[2022-05-28] MEDS: DAPAGLIFLOZIN PROPANEDIOL 10 MG TABLET PO SCH (10:30)
[2022-05-28] MEDS: TORSEMIDE 20 MG TAB PO SCH ×2 (10:30→19:33)
--- NOTE | 2022-05-28 13:35 | P.PN ---
Subjective Progress Note Date: 05/28/22 This is a pleasant 31-year-old female patient who follows with a Dr. Nikki Mark and Dr. Jacky Jimenez out of [place]. She has a history of cardiomyopathy, "clot around my heart" for which she is on Eliquis, methamphetamine and alcohol abuse last used 04/16/2022. She has been worked up at [facility] and [facility] was also [facility] in [place] last year at which time she was diagnosed with cardiomyopathy. She denies history of coronary artery disease. She was initially ordered a LifeVest while being worked up for LVAD/heart transplant however needed to be clean prior to undergoing. Initially quit drinking and using meth however relapsed at which time she quit taking her Eliquis. In April she resumed her Eliquis. Since then she has been having issues with menorrhagia. She is currently at [place] for rehab/therapy since the beginning of this month. She been complaining of dizziness, weakness, fatigue and overall not feeling well with some orthopnea and minimal abdominal bloating over the last few days. Upon presentation hemoglobin was 6.3 with a repeat of 6.1. She underwent transvaginal ultrasound which showed no evidence for acute pelvic process, right ovarian cyst measuring up to 3.5 cm. And given iron infusion. The patient is Yarsani and does not accept blood products. She is currently on losartan, Farxiga, digoxin, torsemide and aldactone. Blood pressure is running on the low side. Labs show normal renal function. NT proBNP is 553. His x-ray shows no acute cardiopulmonary disease/process with cardiomegaly. On examination she is resting comfortably on a stretcher in the emergency department. She is overall feeling tired and somewhat weak. She is complaining of some dizziness. Denies any chest pain. Has not had any palpitations. Feeling dizzy and lightheaded but denies any syncope or near syncope. Denies any lower extremity edema however feels she is somewhat bloated in her abdomen which is where she typically holds fluid. 05/28/2022 She was seen and examined resting calmly in bed. She did end up receiving one unit of packed red cells and is feeling quite a bit better today. Records revi ewed from [facility] and she did have echocardiogram that showed multiple thrombi in the LV with a follow-up echo showing a moderately sized thrombus. Most recent echo was in August and showed an ejection fraction of around 10%. She's apparently been tried on a beta dede in the past and had issues with hypotension. Blood pressure has been stable running around 100-105 systolic and heart rate has been in the 80s. Repeat hemoglobin this morning was 7.5. Objective - Vital Signs Vital signs: Vital Signs Temp 97.7 F 05/28/22 08:00 Pulse 84 05/28/22 08:00 Resp 16 05/28/22 08:00 BP 103/51 05/28/22 08:00 Pulse Ox 98 05/28/22 08:54 FiO2 Intake & Output 05/27/22 05/28/22 05/28/22 18:59 06:59 18:59 Intake Total 550 420 Balance 550 420 Intake: Oral 240 420 Blood Product 310 Rc As-1 Unit 310 [id number] Other: Voiding Method Toilet Toilet # Voids 2 - Exam PHYSICAL EXAMINATION: This is a 31-year-old female in no apparent distress at the time of my examination. HEENT: Head is atraumatic, normocephalic. Pupils are equal, round. Sclerae anicteric. Conjunctivae are clear. Mucous membranes of the mouth are moist. Neck is supple. There is no elevated jugular venous pressure. No carotid bruit is h eard. CHEST EXAMINATION: Clear to auscultation bilaterally. No wheezes rales or rhonchi. Respirations even and nonlabored. HEART EXAMINATION: Heart regular, positive S1 and S2. No S3. No S4. With a soft systolic murmur. ABDOMEN: Soft, nontender. Bowel sounds are heard. No organomegaly noted. EXTREMITIES: 2+ peripheral pulses with no evidence of peripheral edema and no calf tenderness noted. NEUROLOGIC EXAMINATION: Patient is awake, alert and oriented x3. - Labs CBC & Chem 7: 05/28/22 08:01 05/28/22 08:01 Labs: Abnormal Lab Results - Last 24 Hours (Table) 05/26/22 05/28/22 05/28/22 Range/Units 18:27 04:16 08:01 RBC 2.96 L 3.07 L (3.80-5.40) m/uL Hgb 7.5 L D 7.5 L (11.4-16.0) gm/dL Hct 23.8 L 24.7 L (34.0-46.0) % MCH 24.3 L (25.0-35.0) pg MCHC 30.2 L (31.0-37.0) g/dL RDW 18.5 H 18.8 H (11.5-15.5) % Lymphocytes # 0.8 L (1.0-4.8) k/uL Sodium (137-145) mmol/L Glucose (74-99) mg/dL Calcium (8.4-10.2) mg/dL Crossmatch See Detail 05/28/22 Range/Units 08:01 RBC (3.80-5.40) m/uL Hgb (11.4-16.0) gm/dL Hct (34.0-46.0) % MCH (25.0-35.0) pg MCHC (31.0-37.0) g/dL RDW (11.5-15.5) % Lymphocytes # (1.0-4.8) k/uL Sodium 136 L (137-145) mmol/L Glucose 134 H (74-99) mg/dL Calcium 8.2 L (8.4-10.2) mg/dL Crossmatch Microbiology - Last 24 Hours (Table) 05/26/22 15:57 Urine Culture - Final Urine,Voided Strep agalactiae - (group b) Assessment and Plan Assessment: #1 anemia secondary to menorrhagia, on Eliquis #2 history of cardiomyopathy, likely nonischemic #3 possible history of apical thrombus #4 substance abuse disorder, currently in remission Plan: From cardiology's perspective we will continue to hold Eliquis for now. We'll obtain a 2-D echo with Doppler study to assess cardiac structure and function. Continue losartan, Aldactone, digoxin, and Farxiga as well as torsemide. Depending on the blood pressure tomorrow we may consider adding low-dose Toprol. Further recommendations to follow. EMERGENCY MEDICINE SPECIALIST note has been reviewed, I agree with a documented findings and plan of care. Patient was seen and examined.
--- NOTE | 2022-05-28 14:21 | P.PN ---
Subjective Progress Note Date: 05/28/22 This is a 31-year-old female with medical history significant for heart failure with low EF, reports of having multiple clots "around her heart", current daily smoker. She is anticoagulated with eliquis and currently on torsemide and digoxin. Maintained on 2L fluid restriction daily. Supposed to be wearing a lifevest pending LVAD/heart transplant once she is sober. Patient states she has been using IV drugs since around the age 24. She has 4 children, and has had miscarriage in the past. History of tubal ligation. She was diagnosed with cardiomyopathy about 1 year ago in [facility], and now follows with a director biology Dr Mark and Dr. Jimenez out of [place]. Has history of meth and alcohol abuse and is currently receiving treatment at [facility]. Has been sober since April 16, 2022. Patient presents to the hospital from [facility] rehab facility with concern for dizziness, headache, and excessive vaginal bleeding with clots which she is currently on her menstrual cycle. Patient states the clots have been going on for the last 3 days and has been soaking through her clothes. She stopped her eliquis and began taking it in April again. Patient states she had not had a menstrual period for 2 months prior to this episode of bleeding. Currently sexually active not using condoms and not on oral contraception. Onset of menses around age 10 and has been fairly regular since. Denies chest pain denies shortness of breath, no fever or chills. Transvaginal ultrasound is done showing no acute pelvic process, right ovarian cyst is measuring up to 3.5 cm. Chest xray is negative. EKG showing sinus rhythm with heart rate of 88, there is no specific T wave or ST changes. Patient presents with hemoglobin of 6.3 with platelet count of 288. Iron studies are completed showing iron 17, TIBC 477, transferrin 344. Troponin is negative and proBNP 553. Suspect dizziness and lightheadedness are secondary to acute blood loss. Blood pressure 99/61. Patient received 1 dose of IV iron in the EC. She is a Jehovahs Witness and does not accept blood products. IV ferrlecit x 2 more days has been ordered and patient will need to be on oral ferrous sulfate on discharge. She has some dizziness while ambulating. 05/28/2022 Patient is evaluated today on medical floor. Status post 1 unit of packed red blood cells and hemoglobin has improved to 7.5. She is receiving IV iron. Overall feeling better. Cardiology has evaluated the patient. Echocardiogram is pending at this time. Patient will be monitored off eliquis for now. Reports received from [facility] showing an EF of 10% on most recent echo in August of this year. Also showing moderately sized thrombus LV. Blood pressure improved. Further recommendations being made by cardiology pending echo report. Review of Systems Constitutional: Denied any fatigue denied any fever. Cardio vascular: denied any chest pain, palpitations Gastrointestinal: denied any nausea, vomiting, diarrhea Pulmonary: Denied any shortness of breath cough Neurologic denied any new focal deficits All inpatient medications were reviewed and appropriate changes in these medications as dictated in the interval history and assessment and plan. PHYSICAL EXAMINATION: GENERAL: The patient is alert and oriented x3, not in any acute distress. Well developed, well nourished. HEENT: Pupils are round and equally reacting to light. EOMI. No scleral icterus. No conjunctival pallor. Normocephalic, atraumatic. No pharyngeal erythema. No thyromegaly. CARDIOVASCULAR: S1 and S2 present. No murmurs, rubs, or gallops. PULMONARY: Chest is clear to auscultation, no wheezing or crackles. ABDOMEN: Soft, nontender, nondistended, normoactive bowel sounds. No palpable organomegaly. MUSCULOSKELETAL: No joint swelling or deformity. EXTREMITIES: No cyanosis, clubbing, or pedal edema. NEUROLOGICAL: Gross neurological examination did not reveal any focal deficits. SKIN: No rashes. Assessment and plan Assessment Dizziness lightheadedness secondary to acute blood loss Anemia microcytic secondary to menorrhagia on eliquis Menorrhagia History of cardiomyopathy pending echocardiogram Possible history of apical thrombus Substance abuse disorder currently maintaining sobriety Daily tobacco use DVT prophylaxis: Eliquis currently on hold secondary to anemia GI prophylaxis: Protonix Full Code Plan Status post 1 unit PRBC IV ferrlecit x 2 days Surgical Supplies Sterilizer consultation pending Continue digoxin, spironolactone, torsemide Continue with 2L flluid restriction Echocardiogram pending [facility]iology [facility] The impression and plan of care has been dictated by Lizett Mariee Nurse Practitioner as directed. Dr. Kimberli MD I have performed a history and physical examination and medical decision making of this patient, discussed the same with the dictator, and agree with the dictators assessment and plan as written, documented as a scribe. Based on total visit time, I have performed more than 50% of this visit. Objective - Vital Signs Vital signs: Vital Signs Temp 98.0 F 05/28/22 12:00 Pulse 85 05/28/22 12:00 Resp 16 05/28/22 12:00 BP 108/71 05/28/22 12:00 Pulse Ox 100 05/28/22 12:00 FiO2 Intake & Output 05/27/22 05/28/22 05/28/22 18:59 06:59 18:59 Intake Total 550 600 Balance 550 600 Intake: Oral 240 600 Blood Product 310 Rc As-1 Unit 310 [id number] Other: Voiding Method Toilet Toilet # Voids 2 - Labs CBC & Chem 7: 05/28/22 08:01 05/28/22 08:01 Labs: Abnormal Lab Results - Last 24 Hours (Table) 05/26/22 05/28/22 05/28/22 Range/Units 18:27 04:16 08:01 RBC 2.96 L 3.07 L (3.80-5.40) m/uL Hgb 7.5 L D 7.5 L (11.4-16.0) gm/dL Hct 23.8 L 24.7 L (34.0-46.0) % MCH 24.3 L (25.0-35.0) pg MCHC 30.2 L (31.0-37.0) g/dL RDW 18.5 H 18.8 H (11.5-15.5) % Lymphocytes # 0.8 L (1.0-4.8) k/uL Sodium (137-145) mmol/L Glucose (74-99) mg/dL Calcium (8.4-10.2) mg/dL Crossmatch See Detail 05/28/22 Range/Units 08:01 RBC (3.80-5.40) m/uL Hgb (11.4-16.0) gm/dL Hct (34.0-46.0) % MCH (25.0-35.0) pg MCHC (31.0-37.0) g/dL RDW (11.5-15.5) % Lymphocytes # (1.0-4.8) k/uL Sodium 136 L (137-145) mmol/L Glucose 134 H (74-99) mg/dL Calcium 8.2 L (8.4-10.2) mg/dL Crossmatch Microbiology - Last 24 Hours (Table) 05/26/22 15:57 Urine Culture - Final Urine,Voided Strep agalactiae - (group b) Assessment and Plan Time with Patient: Less than 30
--- NOTE | 2022-05-28 15:56 | P.OBCN ---
History of Present Illness Consult date: 05/28/22 Reason for consult: menorrhagia, other (Acute anemia) History of present illness: As noted in previous documentation, the patient has a known history of cardiac disease and cardiomyopathy with roughly 10% ejection fraction pending echocardiogram done at this hospital. She also is in treatment for substance abuse at [facility]. Given her cardiac condition and history of blood clots, she has been placed on anticoagulation, specifically Eliquis. She otherwise is a 5 para [id number] who had 4 previous deliveries last of which included tubal ligation which is her form of contraception. She essentially active at this time. She reports no history of gynecologic concerns or issues. Her cycles have always been relatively regular and did not use to be significantly heavy until she was placed on anticoagulation. This is continued to get worse and worse over the course of time until she had this most recent cycle which time she is bleeding significantly heavily and prompted a trip to the emergency department. Since being in the hospital, she has had her anticoagulation held and the bleeding has significantly decreased. Pelvic ultrasound was entirely normal. She additionally allowed for 1 unit of packed red blood cells and feels significantly better since that time. Obstetrical history: 5 para 4014 with 4 term deliveries and one early miscarriage. Method of contraception is tubal ligation. Gynecologic history: Unremarkable per the patient with no history of any infections to include STDs and Pap smears have been normal his historically. Past Medical History Past Medical History: Heart Failure History of Any Multi-Drug Resistant Organisms: None Reported Past Surgical History: Section Past Psychological History: No Psychological Hx Reported Smoking Status: Current every day smoker Past Alcohol Use History: None Reported Additional Past Alcohol Use History / Comment(s): previous ETOH use and Meth- in rehab Past Drug Use History: None Reported - Past Family History Father Family Medical History: Unable to Obtain Mother Family Medical History: Unable to Obtain Medications and Allergies Home Medications Medication Instructions Recorded Confirmed Type Acetaminophen [Tylenol 8 Hour] 650 mg PO Q4H PRN MDD 1950MG 05/26/22 05/26/22 History Apixaban [Eliquis] 5 mg PO BID 05/26/22 05/26/22 History Calcium/Magnesium/Zinc/Vitamin D 1 tab PO TID PRN 05/26/22 05/26/22 History Dapagliflozin Propanediol [Farxiga] 10 mg PO DAILY 05/26/22 05/26/22 History Digoxin [Lanoxin] 125 mcg PO DAILY 05/26/22 05/26/22 History Losartan Potassium [Cozaar] 25 mg PO DAILY 05/26/22 05/26/22 History Spironolactone [Aldactone] 25 mg PO DAILY 05/26/22 05/26/22 History Thiamine [Vitamin B-1] 100 mg PO DAILY 05/26/22 05/26/22 History Torsemide [Demadex] 20 mg PO BID 05/26/22 05/26/22 History guaiFENesin SYRUP 100MG/5ML 200 mg PO Q4H PRN 05/26/22 05/26/22 History [Robitussin] Allergies Allergy/AdvReac Type Severity Reaction Status Date / Time No Known Allergies Allergy Verified 05/26/22 19:29 Exam Vital Signs Temp Pulse Pulse Pulse Resp BP BP 05/28/22 12:00 98.0 F 85 16 05/28/22 08:54 05/28/22 08:00 97.7 F 84 16 05/28/22 03:38 98.3 F 89 16 101/63 05/28/22 00:00 97.9 F 91 16 102/64 05/27/22 23:46 98.1 F 79 16 96/61 05/27/22 20:26 98.2 F 83 16 103/66 05/27/22 20:06 98 F 85 18 106/70 05/27/22 20:00 98.2 F 84 18 109/71 BP Pulse Ox 05/28/22 12:00 108/71 100 05/28/22 08:54 98 05/28/22 08:00 103/51 100 05/28/22 03:38 100 05/28/22 00:00 98 05/27/22 23:46 99 05/27/22 20:26 100 05/27/22 20:06 100 05/27/22 20:00 100 Intake and Output 05/28/22 05/28/22 05/28/22 06:59 14:59 22:59 Intake Total 310 600 Balance 310 600 Intake: Oral 600 Blood Product 310 Rc As-1 Unit 310 [id number] Other: Voiding Method Toilet Toilet # Voids 2 In general this is a well-developed well-nourished woman in no acute distress. Her heart and lung exams are deferred to the medical team. Her abdomen is nondistended, soft, nontender, without any palpable masses. Her extremities are without cyanosis, clubbing or edema and are nontender to palpation bilaterally. Bimanual pelvic examination demonstrated a roughly 4-5 week midplane mobile normal shaped uterus with normal adnexa bilaterally. My examining hand did r eturn minimal blood. Results Result Diagrams: 05/28/22 08:01 05/28/22 08:01 Abnormal Lab Results - Last 24 Hours (Table) 05/26/22 05/28/22 05/28/22 Range/Units 18:27 04:16 08:01 RBC 2.96 L 3.07 L (3.80-5.40) m/uL Hgb 7.5 L D 7.5 L (11.4-16.0) gm/dL Hct 23.8 L 24.7 L (34.0-46.0) % MCH 24.3 L (25.0-35.0) pg MCHC 30.2 L (31.0-37.0) g/dL RDW 18.5 H 18.8 H (11.5-15.5) % Lymphocytes # 0.8 L (1.0-4.8) k/uL Sodium (137-145) mmol/L Glucose (74-99) mg/dL Calcium (8.4-10.2) mg/dL Crossmatch See Detail 05/28/22 Range/Units 08:01 RBC (3.80-5.40) m/uL Hgb (11.4-16.0) gm/dL Hct (34.0-46.0) % MCH (25.0-35.0) pg MCHC (31.0-37.0) g/dL RDW (11.5-15.5) % Lymphocytes # (1.0-4.8) k/uL Sodium 136 L (137-145) mmol/L Glucose 134 H (74-99) mg/dL Calcium 8.2 L (8.4-10.2) mg/dL Crossmatch Microbiology - Last 24 Hours (Table) 05/26/22 15:57 Urine Culture - Final Urine,Voided Strep agalactiae - (group b) Assessment and Plan (1) Menorrhagia Current Visit: Yes Status: Acute Code(s): N92.0 - EXCESSIVE AND FREQUENT MENSTRUATION WITH REGULAR CYCLE SNOMED Code(s): 178482394 (2) Symptomatic anemia Current Visit: Yes Status: Acute Code(s): D64.9 - ANEMIA, UNSPECIFIED SNOMED Code(s): 503124262 Plan: I discussed with the patient at some length that she is in a difficult spot gynecologically. The simplest way to control her bleeding would we with estrogen containing products which she cannot have secondary to her cardiac conditions. Her bleeding could additionally potentially be controlled with tranexamic acid which again is contraindicated secondary to her clotting status. The degree of bleeding is the issue, not timing of the bleeding. She does have regular cycles per her history. The onset of the increase in heaviness to her cycles coincides with the onset of the anticoagulation. From a gynecologic perspective, the use of Eliquis is almost certainly the source of the menorrhagia. 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 She is an excellent candidate for endometrial ablation but this can be pursued in the outpatient setting as she would require a biopsy of the endometrium prior to scheduling the surgery. Progestational products could be considered to try to control her bleeding but they're far less likely to be effective than the products mentioned earlier. She understood everything was discussed and agrees to likely follow-up in the outpatient clinic for further diagnosis and treatment as needed.
[2022-05-29] MEDS: TORSEMIDE 20 MG TAB PO SCH ×2 (08:30→21:06)
[2022-05-29] MEDS: NICOTINE 14MG/24HR PATCH TRANSDERM SCH (08:30)
[2022-05-29] MEDS: DAPAGLIFLOZIN PROPANEDIOL 10 MG TABLET PO SCH (08:30)
[2022-05-29] MEDS: SPIRONOLACTONE 25 MG TAB PO SCH (08:31)
[2022-05-29] MEDS: DIGOXIN 125 MCG TAB PO SCH (08:31)
[2022-05-29] MEDS: THIAMINE 100 MG TAB PO SCH (08:31)
[2022-05-29 08:54] LABS: Anisocytosis Slight; Basophils % (A) 1 %; Eosinophils # (A) 0.1 k/uL (0-0.7); Eosinophils % (A) 1 %; HCT 25.3 % (34.0-46.0); HGB 7.8 gm/dL (11.4-16.0); Hypochromasia Marked; Lymphocytes # (A) 0.6 k/uL (1.0-4.8); Lymphocytes % (A) 12 %; MCH 24.9 pg (25.0-35.0); MCHC 30.9 g/dL (31.0-37.0); MCV 80.7 fL (80.0-100.0); Microcytosis Slight; Monocytes # (A) 0.3 k/uL (0-1.0); Monocytes % (A) 6 %; Neutrophils # (A) 4.2 k/uL (1.3-7.7); Neutrophils % (A) 78 %; Platelet Count 339 k/uL (150-450); Poikilocytosis Slight; RBC 3.14 m/uL (3.80-5.40); RDW 19.4 % (11.5-15.5); WBC 5.4 k/uL (3.8-10.6)
[2022-05-29] MEDS: SODIUM FERRIC GLUCONAT-SUCROSE 125 MG in SODIUM CHLORIDE 0.9% 100 ML IVPB SCH (09:51)
[2022-05-29 10:26] LABS: Polychromasia Present
--- NOTE | 2022-05-29 14:21 | P.PN ---
Subjective Progress Note Date: 05/29/22 This is a pleasant 31-year-old female patient who follows with a Dr. Nikki Mark and Dr. Jacky Jimenez out of [place]. She has a history of cardiomyopathy, "clot around my heart" for which she is on Eliquis, methamphetamine and alcohol abuse last used 04/16/2022. She has been worked up at [facility] and [facility] was also [facility] in [place] last year at which time she was diagnosed with cardiomyopathy. She denies history of coronary artery disease. She was initially ordered a LifeVest while being worked up for LVAD/heart transplant however needed to be clean prior to undergoing. Initially quit drinking and using meth however relapsed at which time she quit taking her Eliquis. In April she resumed her Eliquis. Since then she has been having issues with menorrhagia. She is currently at [facility] for rehab/therapy since the beginning of this month. She been complaining of dizziness, weakness, fatigue and overall not feeling well with some orthopnea and minimal abdominal bloating over the last few days. Upon presentation hemoglobin was 6.3 with a repeat of 6.1. She underwent transvaginal ultrasound which showed no evidence for acute pelvic process, right ovarian cyst measuring up to 3.5 cm. And given iron infusion. The patient is Jainism and does not accept blood products. She is currently on losartan, Farxiga, digoxin, torsemide and aldactone. Blood pressure is running on the low side. Labs show normal renal function. NT proBNP is 553. His x-ray shows no acute cardiopulmonary disease/process with cardiomegaly. On examination she is resting comfortably on a stretcher in the emergency department. She is overall feeling tired and somewhat weak. She is complaining of some dizziness. Denies any chest pain. Has not had any palpitations. Feeling dizzy and lightheaded but denies any syncope or near syncope. Denies any lower extremity edema however feels she is somewhat bloated in her abdomen which is where she typically holds fluid. 05/28/2022 She was seen and examined resting calmly in bed. She did end up receiving one unit of packed red cells and is feeling quite a bit better today. Records revi ewed from [facility] and she did have echocardiogram that showed multiple thrombi in the LV with a follow-up echo showing a moderately sized thrombus. Most recent echo was in August and showed an ejection fraction of around 10%. She's apparently been tried on a beta dede in the past and had issues with hypotension. Blood pressure has been stable running around 100-105 systolic and heart rate has been in the 80s. Repeat hemoglobin this morning was 7.5. 05/29/2022 She was seen and examined by [facility] for recommending switching anticoagulation and endometrial ablation as an outpatient. Her vital signs stable. Hemoglobin this morning 7.8. She is overall feeling well just quite tired and feels like her heart rate is elevated. Echocardiogram is pending. Objective - Vital Signs Vital signs: Vital Signs Temp 99.5 F 05/29/22 11:53 Pulse 99 05/29/22 11:53 Resp 14 05/29/22 11:53 BP 107/58 05/29/22 11:53 Pulse Ox 99 05/29/22 11:53 FiO2 Intake & Output 05/28/22 05/29/22 05/29/22 18:59 06:59 18:59 Intake Total 780 240 240 Balance 780 240 240 Intake: Oral 780 240 240 Other: Voiding Method Toilet Toilet Toilet # Voids 3 2 - Exam PHYSICAL EXAMINATION: This is a 31-year-old female in no apparent distress at the time of my examination. HEENT: Head is atraumatic, normocephalic. Pupils are equal, round. Sclerae anicteric. Conjunctivae are clear. Mucous membranes of the mouth are moist. Neck is supple. There is no elevated jugular venous pressure. No carotid bruit is heard. CHEST EXAMINATION: Clear to auscultation bilaterally. No wheezes rales or rhonchi. Respirations even and nonlabored. HEART EXAMINATION: Heart regular, positive S1 and S2. No S3. No S4. With a soft systolic murmur. ABDOMEN: Soft, nontender. Bowel sounds are heard. No organomegaly noted. EXTREMITIES: 2+ peripheral pulses with no evidence of peripheral edema and no calf tenderness noted. NEUROLOGIC EXAMINATION: Patient is awake, alert and oriented x3. - Labs CBC & Chem 7: 05/29/22 08:08 05/28/22 08:01 Labs: Abnormal Lab Results - Last 24 Hours (Table) 05/26/22 05/29/22 Range/Units 18:27 08:08 RBC 3.14 L (3.80-5.40) m/uL Hgb 7.8 L (11.4-16.0) gm/dL Hct 25.3 L (34.0-46.0) % MCH 24.9 L (25.0-35.0) pg MCHC 30.9 L (31.0-37.0) g/dL RDW 19.4 H (11.5-15.5) % Lymphocytes # 0.6 L (1.0-4.8) k/uL Crossmatch See Detail Assessment and Plan Assessment: #1 anemia secondary to menorrhagia, on Eliquis #2 history of cardiomyopathy, likely nonischemic #3 possible history of apical thrombus #4 substance abuse disorder, currently in remission Plan: From cardiology's perspective we are awaiting echocardiogram. Depending on these findings in regard to LV thrombus further recommendations will be made in regards to anticoagulation, may consider switching to Xarelto. Continue losartan, Aldactone, digoxin, and Farxiga as well as torsemide. We will add low-dose Toprol. Further recommendations to follow. GRAVE DIGGER note has been reviewed, I agree with a documented findings and plan of care. Patient was seen and examined.
--- NOTE | 2022-05-29 14:51 | P.PN ---
Subjective Progress Note Date: 05/29/22 This is a 31-year-old female with medical history significant for heart failure with low EF, reports of having multiple clots "around her heart", current daily smoker. She is anticoagulated with eliquis and currently on torsemide and digoxin. Maintained on 2L fluid restriction daily. Supposed to be wearing a lifevest pending LVAD/heart transplant once she is sober. Patient states she has been using IV drugs since around the age 24. She has 4 children, and has had miscarriage in the past. History of tubal ligation. She was diagnosed with cardiomyopathy about 1 year ago in [facility], and now follows with a install and repair technician Dr Mark and Dr. Jimenez out of [place]. Has history of meth and alcohol abuse and is currently receiving treatment at [place]. Has been sober since April 16, 2022. Patient presents to the hospital from [place] rehab facility with concern for dizziness, headache, and excessive vaginal bleeding with clots which she is currently on her menstrual cycle. Patient states the clots have been going on for the last 3 days and has been soaking through her clothes. She stopped her eliquis and began taking it in April again. Patient states she had not had a menstrual period for 2 months prior to this episode of bleeding. Currently sexually active not using condoms and not on oral contraception. Onset of menses around age 10 and has been fairly regular since. Denies chest pain denies shortness of breath, no fever or chills. Transvaginal ultrasound is done showing no acute pelvic process, right ovarian cyst is measuring up to 3.5 cm. Chest xray is negative. EKG showing sinus rhythm with heart rate of 88, there is no specific T wave or ST changes. Patient presents with hemoglobin of 6.3 with platelet count of 288. Iron studies are completed showing iron 17, TIBC 477, transferrin 344. Troponin is negative and proBNP 553. Suspect dizziness and lightheadedness are secondary to acute blood loss. Blood pressure 99/61. Patient received 1 dose of IV iron in the EC. She is a Jehovahs Witness and does not accept blood products. IV ferrlecit x 2 more days has been ordered and patient will need to be on oral ferrous sulfate on discharge. She has some dizziness while ambulating. 05/28/2022 Patient is evaluated today on medical floor. Status post 1 unit of packed red blood cells and hemoglobin has improved to 7.5. She is receiving IV iron. Overall feeling better. Cardiology has evaluated the patient. Echocardiogram is pending at this time. Patient will be monitored off eliquis for now. Reports received from [facility] showing an EF of 10% on most recent echo in August of this year. Also showing moderately sized thrombus LV. Blood pressure improved. Further recommendations being made by cardiology pending echo report. 05/29/2022 Patient monitored on medical floor, no acute events overnight. Hemoglobin today 7.8, she is receiving daily IV iron transfusions. She has been evaluated by OB who is recommended patient remain off eliquis. Echocardiogram is currently pending for discharge recommendations. Patient may require anticoagulation. Cardiology following. Blood pressure 107/58 Review of Systems Constitutional: Denied any fatigue denied any fever. Cardio vascular: denied any chest pain, palpitations Gastrointestinal: denied any nausea, vomiting, diarrhea Pulmonary: Denied any shortness of breath cough Neurologic denied any new focal deficits All inpatient medications were reviewed and appropriate changes in these medications as dictated in the interval history and assessment and plan. PHYSICAL EXAMINATION: GENERAL: The patient is alert and oriented x3, not in any acute distress. Well developed, well nourished. HEENT: Pupils are round and equally reacting to light. EOMI. No scleral icterus. No conjunctival pallor. Normocephalic, atraumatic. No pharyngeal erythema. No thyromegaly. CARDIOVASCULAR: S1 and S2 present. No murmurs, rubs, or gallops. PULMONARY: Chest is clear to auscultation, no wheezing or crackles. ABDOMEN: Soft, nontender, nondistended, normoactive bowel sounds. No palpable organomegaly. MUSCULOSKELETAL: No joint swelling or deformity. EXTREMITIES: No cyanosis, clubbing, or pedal edema. NEUROLOGICAL: Gross neurological examination did not reveal any focal deficits. SKIN: No rashes. Assessment and plan Assessment Dizziness lightheadedness secondary to acute blood loss Anemia microcytic secondary to menorrhagia on eliquis Menorrhagia History of cardiomyopathy pending echocardiogram Possible history of apical thrombus Substance abuse disorder currently maintaining sobriety Daily tobacco use DVT prophylaxis: Eliquis currently on hold secondary to anemia GI prophylaxis: Protonix Full Code Plan Status post 1 unit PRBC Continue IV ferrlecit Echocardiogram pending Cardiology consultation DC back to [facility] heart when medically stable The impression and plan of care has been dictated by Lizett Mariee Nurse Practitioner as directed. Dr. Kimberli MD I have performed a history and physical examination and medical decision making of this patient, discussed the same with the dictator, and agree with the dictators assessment and plan as written, documented as a scribe. Based on total visit time, I have performed more than 50% of this visit. Objective - Vital Signs Vital signs: Vital Signs Temp 99.5 F 05/29/22 11:53 Pulse 99 05/29/22 11:53 Resp 14 05/29/22 11:53 BP 107/58 05/29/22 11:53 Pulse Ox 99 05/29/22 11:53 FiO2 Intake & Output 05/28/22 05/29/22 05/29/22 18:59 06:59 18:59 Intake Total 780 240 358 Balance 780 240 358 Intake: Oral 780 240 358 Other: Voiding Method Toilet Toilet Toilet # Voids 3 2 - Labs CBC & Chem 7: 05/29/22 08:08 05/28/22 08:01 Labs: Abnormal Lab Results - Last 24 Hours (Table) 05/26/22 05/29/22 Range/Units 18:27 08:08 RBC 3.14 L (3.80-5.40) m/uL Hgb 7.8 L (11.4-16.0) gm/dL Hct 25.3 L (34.0-46.0) % MCH 24.9 L (25.0-35.0) pg MCHC 30.9 L (31.0-37.0) g/dL RDW 19.4 H (11.5-15.5) % Lymphocytes # 0.6 L (1.0-4.8) k/uL Crossmatch See Detail Assessment and Plan Time with Patient: Less than 30
[2022-05-29] MEDS: ACETAMINOPHEN TAB 325 MG TAB PO PRN (17:21)
--- NOTE | 2022-05-29 17:42 | CA ---
Transthoracic Echo Report Name: Monae Montes Age: 31 Gender: F : 1990 Exam Date: 05/29/2022 15:43 Exam Location: [facility] Ht (in): 64 Wt (lb): 168 Ordering Physician: Kelly Williamson Attending/Referring Phys: [id number], Teri Rivet Machine Operator Areli South RDCS Procedure CPT: Indications: cardiomyopathy/?history of thrombus Cardiac Hx: Technical Quality: Contrast 1: Total Dose (mL): Contrast 2: Total Dose (mL): MEASUREMENTS (Male / Female) Normal Values 2D ECHO LV Diastolic Diameter PLAX 6.0 cm 4.2 - 5.9 / 3.9 - 5.3 cm LV Systolic Diameter PLAX 5.4 cm IVS Diastolic Thickness 1.1 cm 0.6 - 1.0 / 0.6 - 0.9 cm LVPW Diastolic Thickness 1.7 cm 0.6 - 1.0 / 0.6 - 0.9 cm LV Relative Wall Thickness 0.5 RV Internal Dim ED PLAX 3.8 cm LA Systolic Diameter LX 4.5 cm 3.0 - 4.0 / 2.7 - 3.8 cm LA Volume 92.5 cm??? 18 - 58 / 22 - 52 cm??? M-MODE Aortic Root Diameter MM 3.0 cm LA Systolic Diameter MM 4.0 cm LA Ao Ratio MM 1.4 MV E Point Septal Separation 1.6 cm AV Cusp Separation MM 2.0 cm DOPPLER TR Peak Velocity 246.8 cm/s TR Peak Gradient 24.4 mmHg Right Ventricular Systolic Press 28.3 mmHg FINDINGS Left Ventricle Mildly increased septal wall thickness. Moderately increased left ventricular diastolic diameter. Severely reduced global left ventricular systolic function. Left ventricular ejection fraction is estimated at 10%. Right Ventricle Normal right ventricular size and function. Right ventricular systolic pressure within normal limits. Right Atrium Normal right atrial size. Left Atrium Moderately increased left atrial diameter. Severely increased left atrial volume. Mildly increased left atrial area. Mitral Valve Mitral valve thickened. Moderate mitral regurgitation. Aortic Valve Trileaflet aortic valve. Tricuspid Valve Structurally normal tricuspid valve. Mild tricuspid regurgitation. Pulmonic Valve Structurally normal pulmonic valve. Mild pulmonic regurgitation. Pericardium Normal pericardium. Aorta Normal size aortic root and proximal ascending aorta. CONCLUSIONS Dilated left ventricle with severe diffuse global hypokinesis with severe LV systolic dysfunction with an ejection fraction of 10-15% Dilated left atrium Moderate mitral regurgitation Previewed by: Dr. Shun Nuno MD (Electronically Signed) Final Date: 29 May 2022 17:41
[2022-05-30] MEDS: THIAMINE 100 MG TAB PO SCH (09:34)
[2022-05-30] MEDS: DIGOXIN 125 MCG TAB PO SCH (09:34)
[2022-05-30] MEDS: SODIUM FERRIC GLUCONAT-SUCROSE 125 MG in SODIUM CHLORIDE 0.9% 100 ML IVPB SCH (09:34)
[2022-05-30] MEDS: SPIRONOLACTONE 25 MG TAB PO SCH (09:34)
[2022-05-30] MEDS: NICOTINE 14MG/24HR PATCH TRANSDERM SCH (09:35)
[2022-05-30] MEDS: TORSEMIDE 20 MG TAB PO SCH ×2 (09:35→21:23)
[2022-05-30] MEDS: DAPAGLIFLOZIN PROPANEDIOL 10 MG TABLET PO SCH (09:35)
[2022-05-30] MEDS: METOPROLOL SUCCINATE (ER) 25 MG TAB.ER.24H PO SCH (12:20)
[2022-05-30] MEDS: ACETAMINOPHEN TAB 325 MG TAB PO PRN (13:57)
--- NOTE | 2022-05-30 14:40 | P.PN ---
Subjective Progress Note Date: 05/30/22 This is a pleasant 31-year-old female patient who follows with a Dr. Nikki Mark and Dr. Jacky Jimenez out of [place]. She has a history of cardiomyopathy, "clot around my heart" for which she is on Eliquis, methamphetamine and alcohol abuse last used 04/16/2022. She has been worked up at [facility] and [facility] was also [facility] in [place] last year at which time she was diagnosed with cardiomyopathy. She denies history of coronary artery disease. She was initially ordered a LifeVest while being worked up for LVAD/heart transplant however needed to be clean prior to undergoing. Initially quit drinking and using meth however relapsed at which time she quit taking her Eliquis. In April she resumed her Eliquis. Since then she has been having issues with menorrhagia. She is currently at [facility] for rehab/therapy since the beginning of this month. She been complaining of dizziness, weakness, fatigue and overall not feeling well with some orthopnea and minimal abdominal bloating over the last few days. Upon presentation hemoglobin was 6.3 with a repeat of 6.1. She underwent transvaginal ultrasound which showed no evidence for acute pelvic process, right ovarian cyst measuring up to 3.5 cm. And given iron infusion. The patient is Pentecostal and does not accept blood products. She is currently on losartan, Farxiga, digoxin, torsemide and aldactone. Blood pressure is running on the low side. Labs show normal renal function. NT proBNP is 553. His x-ray shows no acute cardiopulmonary disease/process with cardiomegaly. On examination she is resting comfortably on a stretcher in the emergency department. She is overall feeling tired and somewhat weak. She is complaining of some dizziness. Denies any chest pain. Has not had any palpitations. Feeling dizzy and lightheaded but denies any syncope or near syncope. Denies any lower extremity edema however feels she is somewhat bloated in her abdomen which is where she typically holds fluid. 05/28/2022 She was seen and examined resting calmly in bed. She did end up receiving one unit of packed red cells and is feeling quite a bit better today. Records revi ewed from [facility] and she did have echocardiogram that showed multiple thrombi in the LV with a follow-up echo showing a moderately sized thrombus. Most recent echo was in August and showed an ejection fraction of around 10%. She's apparently been tried on a beta dede in the past and had issues with hypotension. Blood pressure has been stable running around 100-105 systolic and heart rate has been in the 80s. Repeat hemoglobin this morning was 7.5. 05/29/2022 She was seen and examined by CLINICAL QUALITY RN for recommending switching anticoagulation and endometrial ablation as an outpatient. Her vital signs stable. Hemoglobin this morning 7.8. She is overall feeling well just quite tired and feels like her heart rate is elevated. Echocardiogram is pending. 05/30/2022 The patient was seen and examined sitting up in a chair. She is overall feeling better since admission. Echocardiogram with Doppler study showed severely reduced global LV systolic function with an ejection fraction estimated at 10%, moderate MR, mild TR and no mention of LV thrombus. Objective - Vital Signs Vital signs: Vital Signs Temp 97.6 F 05/30/22 08:00 Pulse 75 05/30/22 08:00 Resp 17 05/30/22 08:00 BP 104/58 05/30/22 08:00 Pulse Ox 97 05/30/22 08:00 FiO2 Intake & Output 05/29/22 05/30/22 05/30/22 18:59 06:59 18:59 Intake Total 1056 200 358 Balance 1056 200 358 Intake: Intake, IV Titration 100 Amount Sodium Ferric Gluconat- 100 Sucrose 125 mg In Sodium Chloride 0.9% 100 ml @ 100 mls/hr IVPB DAILY [facility] Rx#:[id number] Oral 956 200 358 Other: Voiding Method Toilet Toilet Toilet # Voids 2 - Exam PHYSICAL EXAMINATION: This is a 31-year-old female in no apparent distress at the time of my examination. HEENT: Head is atraumatic, normocephalic. Pupils are equal, round. Sclerae anicteric. Conjunctivae are clear. Mucous membranes of the mouth are moist. Neck is supple. There is no elevated jugular venous pressure. No carotid bruit is heard. CHEST EXAMINATION: Clear to auscultation bilaterally. No wheezes rales or rhonchi. Respirations even and nonlabored. HEART EXAMINATION: Heart regular, positive S1 and S2. No S3. No S4. With a soft systolic murmur. ABDOMEN: Soft, nontender. Bowel sounds are heard. No organomegaly noted. EXTREMITIES: 2+ peripheral pulses with no evidence of peripheral edema and no calf tenderness noted. NEUROLOGIC EXAMINATION: Patient is awake, alert and oriented x3. - Labs CBC & Chem 7: 05/29/22 08:08 05/28/22 08:01 Assessment and Plan Assessment: #1 anemia secondary to menorrhagia, on Eliquis #2 history of cardiomyopathy, likely nonischemic #3 possible history of apical thrombus #4 substance abuse disorder, currently in remission Plan: From cardiology's perspective we will maximize medical therapy. We will add Xarelto. Check CBC tomorrow. If Hgb is stable anticipate discharge tomorrow. She will follow-up with her primary statistical geneticist in regards to the life-vest. PHYSICAL METALLURGIST note has been reviewed, I agree with a documented findings and plan of care. Patient was seen and examined.
[2022-05-30] MEDS: RIVAROXABAN 20 MG TAB PO SCH (16:44)
--- NOTE | 2022-05-30 18:25 | P.PN ---
Subjective Progress Note Date: 05/30/22 This is a 31-year-old female with medical history significant for heart failure with low EF, reports of having multiple clots "around her heart", current daily smoker. She is anticoagulated with eliquis and currently on torsemide and digoxin. Maintained on 2L fluid restriction daily. Supposed to be wearing a lifevest pending LVAD/heart transplant once she is sober. Patient states she has been using IV drugs since around the age 24. She has 4 children, and has had miscarriage in the past. History of tubal ligation. She was diagnosed with cardiomyopathy about 1 year ago in [facility], and now follows with a white sugar pan tank operator Dr Mark and Dr. Jimenez out of [place]. Has history of meth and alcohol abuse and is currently receiving treatment at [facility]. Has been sober since April 16, 2022. Patient presents to the hospital from [facility] rehab facility with concern for dizziness, headache, and excessive vaginal bleeding with clots which she is currently on her menstrual cycle. Patient states the clots have been going on for the last 3 days and has been soaking through her clothes. She stopped her eliquis and began taking it in April again. Patient states she had not had a menstrual period for 2 months prior to this episode of bleeding. Currently sexually active not using condoms and not on oral contraception. Onset of menses around age 10 and has been fairly regular since. Denies chest pain denies shortness of breath, no fever or chills. Transvaginal ultrasound is done showing no acute pelvic process, right ovarian cyst is measuring up to 3.5 cm. Chest xray is negative. EKG showing sinus rhythm with heart rate of 88, there is no specific T wave or ST changes. Patient presents with hemoglobin of 6.3 with platelet count of 288. Iron studies are completed showing iron 17, TIBC 477, transferrin 344. Troponin is negative and proBNP 553. Suspect dizziness and lightheadedness are secondary to acute blood loss. Blood pressure 99/61. Patient received 1 dose of IV iron in the EC. She is a Jehovahs Witness and does not accept blood products. IV ferrlecit x 2 more days has been ordered and patient will need to be on oral ferrous sulfate on discharge. She has some dizziness while ambulating. 05/28/2022 Patient is evaluated today on medical floor. Status post 1 unit of packed red blood cells and hemoglobin has improved to 7.5. She is receiving IV iron. Overall feeling better. Cardiology has evaluated the patient. Echocardiogram is pending at this time. Patient will be monitored off eliquis for now. Reports received from [facility] showing an EF of 10% on most recent echo in August of this year. Also showing moderately sized thrombus LV. Blood pressure improved. Further recommendations being made by cardiology pending echo report. 05/29/2022 Patient monitored on medical floor, no acute events overnight. Hemoglobin today 7.8, she is receiving daily IV iron transfusions. She has been evaluated by OB who is recommended patient remain off eliquis. Echocardiogram is currently pending for discharge recommendations. Patient may require anticoagulation. Cardiology following. Blood pressure 107/58 05/30/2022 Echocardiogram has been completed showing an EF of 10 -15%. Patient currently does not have lifevest states she sent back to company because at the time she was in a rough spot and not complaint with wearing. She now reports she would like a lifevest and understands the risk of having low EF. She will need to follow up with her white sugar pan tank operator after discharge to further discuss and arrange for wearable defibrilator. Cardiology has recommended patient to start xarelto and she will be monitored overnight. Most likely discharge tomorrow. Review of Systems Constitutional: Denied any fatigue denied any fever. Cardio vascular: denied any chest pain, palpitations Gastrointestinal: denied any nausea, vomiting, diarrhea Pulmonary: Denied any shortness of breath cough Neurologic denied any new focal deficits All inpatient medications were reviewed and appropriate changes in these medications as dictated in the interval history and assessment and plan. PHYSICAL EXAMINATION: GENERAL: The patient is alert and oriented x3, not in any acute distress. Well developed, well nourished. HEENT: Pupils are round and equally reacting to light. EOMI. No scleral icterus. No conjunctival pallor. Normocephalic, atraumatic. No pharyngeal erythema. No thyromegaly. CARDIOVASCULAR: S1 and S2 present. No murmurs, rubs, or gallops. PULMONARY: Chest is clear to auscultation, no wheezing or crackles. ABDOMEN: Soft, nontender, nondistended, normoactive bowel sounds. No palpable organomegaly. MUSCULOSKELETAL: No joint swelling or deformity. EXTREMITIES: No cyanosis, clubbing, or pedal edema. NEUROLOGICAL: Gross neurological examination did not reveal any focal deficits. SKIN: No rashes. Assessment and plan Assessment Dizziness lightheadedness secondary to acute blood loss, improved Anemia microcytic secondary to menorrhagia on eliquis anemia has improved s/p 1 unit PRBC and eliquis discontinued Menorrhagia History of cardiomyopathy Possible history of apical thrombus Substance abuse disorder currently maintaining sobriety Daily tobacco use DVT prophylaxis: Has been started on xarelto GI prophylaxis: Protonix Full Code Plan Status post 1 unit PRBC Echocardiogram has been completed Started on xarelto DC back to [facility] heart when medically stable The impression and plan of care has been dictated by Lizett Mariee Nurse Practitioner as directed. Dr. Kimberli MD I have performed a history and physical examination and medical decision making of this patient, discussed the same with the dictator, and agree with the dictators assessment and plan as written, documented as a scribe. Based on total visit time, I have performed more than 50% of this visit. Objective - Vital Signs Vital signs: Vital Signs Temp 97.5 F L 05/30/22 16:00 Pulse 78 05/30/22 16:00 Resp 17 05/30/22 16:00 BP 100/67 05/30/22 16:00 Pulse Ox 100 05/30/22 16:00 FiO2 Intake & Output 05/29/22 05/30/22 05/30/22 18:59 06:59 18:59 Intake Total 1056 200 598 Balance 1056 200 598 Intake: Intake, IV Titration 100 Amount Sodium Ferric Gluconat- 100 Sucrose 125 mg In Sodium Chloride 0.9% 100 ml @ 100 mls/hr IVPB DAILY [facility] Rx#:[id number] Oral 956 200 598 Other: Voiding Method Toilet Toilet Toilet # Voids 2 - Labs CBC & Chem 7: 05/29/22 08:08 05/28/22 08:01 Assessment and Plan Time with Patient: Less than 30
[2022-05-31] MEDS: LOSARTAN 25 MG TAB PO SCH ×2 (03:43→21:04)
[2022-05-31] MEDS: DAPAGLIFLOZIN PROPANEDIOL 10 MG TABLET PO SCH (08:34)
[2022-05-31] MEDS: METOPROLOL SUCCINATE (ER) 25 MG TAB.ER.24H PO SCH (08:34)
[2022-05-31] MEDS: THIAMINE 100 MG TAB PO SCH (08:34)
[2022-05-31] MEDS: DIGOXIN 125 MCG TAB PO SCH (08:34)
[2022-05-31] MEDS: TORSEMIDE 20 MG TAB PO SCH ×2 (08:34→21:04)
[2022-05-31] MEDS: SPIRONOLACTONE 25 MG TAB PO SCH (08:34)
[2022-05-31] MEDS: NICOTINE 14MG/24HR PATCH TRANSDERM SCH (08:34)
[2022-05-31 10:51] LABS: Anisocytosis Moderate; Basophils % (A) 1 %; Eosinophils % (A) 1 %; HCT 29.6 % (34.0-46.0); Hypochromasia Marked; Lymphocytes % (A) 21 %; MCH 25.4 pg (25.0-35.0); MCHC 30.3 g/dL (31.0-37.0); Mean Platelet Volume 8.6; Microcytosis Slight; Monocytes # (A) 0.2 k/uL (0-1.0); Monocytes % (A) 4 %; Neutrophils # (A) 3.3 k/uL (1.3-7.7); Neutrophils % (A) 69 %; Platelet Count 393 k/uL (150-450); Poikilocytosis Slight; RBC 3.52 m/uL (3.80-5.40); RDW 23.5 % (11.5-15.5); WBC 4.8 k/uL (3.8-10.6)
[2022-05-31 11:07] LABS: African American GFR (CKD) >90 (>60 ml/min/1.73 sqM); Anion Gap 11 mmol/L; Blood Urea Nitrogen 14 mg/dL (7-17); Calcium 8.5 mg/dL (8.4-10.2); Carbon Dioxide 25 mmol/L (22-30); Chloride 101 mmol/L (98-107); Glucose 140 mg/dL (74-99); Non-African American GFR(CKD) >90 (>60 ml/min/1.73 sqM); Potassium 3.5 mmol/L (3.5-5.1); Sodium 137 mmol/L (137-145)
--- NOTE | 2022-05-31 12:48 | P.PN ---
Subjective Progress Note Date: 05/31/22 History of Present Illness: The patient is a 31-year-old female with a known history of severe nonischemic cardiomyopathy history of chronic CHF with severely reduced systolic function who has been evaluated for LVAD and transplantation who presented with severe anemia and severe heavy menses. She was anticoagulated because of apical thrombus. She's feeling better now, ambulating, has mild dizziness with change of position. She continues to be in sinus mechanism. Her echocardiogram showed a severely impaired systolic function, no clear thrombus was observed. She has a history of alcohol and drug abuse and was at [place] Medications: Digoxin 0.125 mg daily, losartan 12-1/2 mg daily, Toprol 25 mg daily, Demadex 20 mg twice a day, Aldactone 25 mg daily,Xarelto 20 mg daily, Farxiga 10 mg daily Review of Systems: Respiratory: She has dyspnea on exertion and a prior history of smoking GI: No nausea or vomiting . No history of peptic ulcer disease. No recent GI bleed. : No hematuria or dysuria. She had heavy vaginal bleeding, better Nervous System: No stroke or seizure. Physical Examination: 31-year-old female, alert oriented no apparent distress ,Blood pressure 98/60, Heart rate 70 Head: Normocephalic. Eyes: Sclerae nonicteric. Neck: Good carotid upstroke, no bruit, no jugular venous distention. Lungs: Clear to auscultation. Heart: Regular rate and rhythm, S1-S2, no S3, no rub. Systolic ejection murmur. Abdomen: Soft nontender, positive bowel sounds no organomegaly. Extremities: No edema, intact distal pulses. Labs: Hemoglobin 9.0, potassium 3.5, BUN 14, creatinine 0.68 Impression: 1. Severe nonischemic cardiomyopathy 2. Prior history of apical thrombus 3. Anemia with severe vaginal bleeding, improved 4. Prior history of alcohol and drug abuse Plan: 1. Continue present therapy 2. Probable discharge home today 3. Follow up with primary customer contact sales associate regarding further evaluation for LVAD transplant 4. If she has further vaginal bleeding stop anticoagulation 5. I discussed those findings with the patient. Objective - Vital Signs Vital signs: Vital Signs Temp 98.1 F 05/31/22 08:30 Pulse 70 05/31/22 09:35 Resp 18 05/31/22 09:35 BP 98/57 05/31/22 08:30 Pulse Ox 96 05/31/22 08:30 FiO2 Intake & Output 05/30/22 05/31/22 05/31/22 18:59 06:59 18:59 Intake Total 598 240 Balance 598 240 Intake: Oral 598 240 Other: Voiding Method Toilet Toilet Toilet # Voids 2 2 1 - Labs CBC & Chem 7: 05/31/22 09:54 05/31/22 09:54 Labs: Abnormal Lab Results - Last 24 Hours (Table) 05/31/22 05/31/22 Range/Units 09:54 09:54 RBC 3.52 L (3.80-5.40) m/uL Hgb 9.0 L (11.4-16.0) gm/dL Hct 29.6 L (34.0-46.0) % MCHC 30.3 L (31.0-37.0) g/dL RDW 23.5 H (11.5-15.5) % Glucose 140 H (74-99) mg/dL
[2022-05-31 12:56] VITALS: RESP 16
[2022-05-31 15:43] VITALS: BP 98/58; PULSE 86; TEMP 99.3
[2022-05-31] MEDS: RIVAROXABAN 20 MG TAB PO SCH (17:24)
--- NOTE | 2022-05-31 23:32 | P.DS ---
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 Do you want consulting provider notified?: Yes Primary care physician: Physician Nonstaff Hospital Course: Final Diagnosis Dizziness lightheadedness secondary to acute blood loss, improved Anemia, with underlying iron deficiency secondary to menorrhagia on eliquis anemia has improved s/p 1 unit PRBC and eliquis discontinued Menorrhagia Severe nonischemic cardiomyopathy with EF 10-15% Possible history of apical thrombus, no clear thrombus observed on echocardiogram this admission Substance abuse disorder currently maintaining sobriety Daily tobacco use Full Code Discharge Disposition Patient is discharge in stable condition with overall guarded prognosis back to [facility] where she is to finish therapy. Recommended to see her primary care provider Dr. Bonner as soon as possible generally recommend within 1 to 2 days of discharge. She has maintained in close contact with her cardiologists Dr. Nikki Mark and Dr. Christopher Jimenez and has a follow up appointment with Dr. Mark on June 28. She has discussed being reinstated with [employer] lifevest and is agreeable to wear and her cardiology office is addressing this per patient. Patient is also recommending to follow up with glass blower on discharge. She was recommended for uterine ablation secondary to menorrhagia while on anticoagulation. She will follow up with one on discharge. Also discussed following with software computer specialist for for further evaluation and monitoring of anemia. Discussed with patient continuing oral iron twice a day, recommend ferrous sulfate 325 mg twice a day. If she has further episodes of vaginal bleeding she is instructed by [facility] community [facility] to discontinue anticoagulation. Patient is given script for repeat blood work in 1 to 2 days. Hospital Course This is a 31-year-old female with medical history significant for heart failure with low EF, reports of having multiple clots "around her heart", current daily smoker. She is anticoagulated with eliquis and currently on torsemide and digoxin. Maintained on 2L fluid restriction daily. Supposed to be wearing a lifevest pending LVAD/heart transplant once she is sober. Patient states she has been using IV drugs since around the age 24. She has 4 children, and has had miscarriage in the past. History of tubal ligation. She was diagnosed with cardiomyopathy about 1 year ago in [facility], and now follows with a director community center Dr Mark and Dr. Jimenez out of [place]. Has history of meth and alcohol abuse and is currently receiving treatment at [facility]. Has been sober since April 16, 2022. Patient presents to the hospital from [facility] facility with concern for dizziness, headache, and excessive vaginal bleeding with clots which she is currently on her menstrual cycle. Patient states the clots have been going on for the last 3 days and has been soaking through her clothes. She stopped her eliquis and began taking it in April again. Patient states she had not had a menstrual period for 2 months prior to this episode of bleeding which coincides with resuming eliquis. Currently sexually active not using condoms and not on oral contraception. Onset of menses around age 10 and has been fairly regular since. Denies chest pain denies shortness of breath, no fever or chills. Transvaginal ultrasound is done showing no acute pelvic process, right ovarian cyst is measuring up to 3.5 cm. Chest xray is negative. EKG showing sinus rhythm with heart rate of 88, there is no specific T wave or ST changes. Patient presents with hemoglobin of 6.3 with platelet count of 288. Iron studies are completed showing iron 17, TIBC 477, transferrin 344, ferritin level low at 15. Findings consistent with underlying iron deficiency anemia. Troponin is negative and proBNP 553. Suspect dizziness and lightheadedness are secondary to acute blood loss. Blood pressure 99/61. Patient was admitted with consult placed to OB and cardiology. She is Jehovahs witness initially refusing blood transfusion. She received 1 dose of IV iron in the EC and hemoglobin had dropped to 5.8. Patient did agree for 1 unit of packed red blood cells and also continued with IV ferrlecit daily during hospital stay. Eliquis was stopped and she was evaluated by OB who is recommended a different anticoagulant. She has been started on xarelto. Hemoglobin has improved up to 9.0. She did undergo echocardiogram showing dilated left ventricle with severe diffuse global hypokinesis with severe LV systolic dysfunction with an EF of 10 to 15%, dilated left atrium, moderate mitral regurgitation. The risk for sudden cardiac associated with low EF has been discussed with patient and she is agreeable for lifevest and she will discuss this with her known director community [facility]. She has been noncompliant with lifevest previously. Patient will continue current cardiac medications, she has been started on Toprol XL daily and also losartan has been decreased. Blood pressure has remained on the low/normal side this admission. She does report some improvement in dizziness and lightheadedness. She does maintain a 2 Liter fluid restriction. 05/31/2022 Patient is evaluated today sitting up in chair at bedside. She is anxious for discharge home. Currently denying chest pain, no shortness of breath. Cardiology has adjusted medications and she is cleared for discharge with the above mentioned recommendations. Dizziness and lightheadedness have improved. She will discharge back to [facility]. Currently lungs are clear, S1 S2 auscultated regular rate and rhythm. Abdomen is soft and nontender no reports of dysuria and she has had a bowel movement. Labs today showing white count of 4.8, hgb 9.0, platelet count of 393. Sodium 137, potassium 3.5, BUN 14, creatinine 0.68, glucose 140. Vitals today showing temp of 98.1, heart rate 70, blood pressure 98/57, 96% on room air. She is cleared for discharge with the above mentioned recommendations. Total time taken in discharge planning greater than 35 minutes. Please see medication reconciliation for a list of current medication. Thank you for allowing us to participate in the care of this patient. The impression and plan of care has been dictated by Nurse Radha Prac titioner as directed. Dr. Kimberli MD I have performed a history and physical examination and medical decision making of this patient, discussed the same with the dictator, and agree with the dictators assessment and plan as written, documented as a scribe. Based on total visit time, I have performed more than 50% of this visit. Patient Condition at Discharge: Fair Plan - Discharge Summary New Discharge Prescriptions: New Nicotine 14Mg/24Hr Patch [Habitrol] 1 patch TRANSDERM DAILY patch Metoprolol Succinate (ER) [Toprol XL] 25 mg PO DAILY #30 tab Rivaroxaban [Xarelto] 20 mg PO W/SUPPER #30 tab Losartan [Cozaar] 12.5 mg PO HS #30 tab Continue Torsemide [Demadex] 20 mg PO BID Spironolactone [Aldactone] 25 mg PO DAILY Thiamine [Vitamin B-1] 100 mg PO DAILY Digoxin [Lanoxin] 125 mcg PO DAILY Dapagliflozin Propanediol [Farxiga] 10 mg PO DAILY guaiFENesin SYRUP 100MG/5ML [Robitussin] 200 mg PO Q4H PRN PRN Reason: Cough Calcium/Magnesium/Zinc/Vitamin D 1 tab PO TID PRN PRN Reason: CRAMPING Changed Acetaminophen [Tylenol 8 Hour] 650 mg PO Q6HR PRN #0 MDD 1950MG PRN Reason: Fever And/ Or Pain Discontinued Losartan Potassium [Cozaar] 25 mg PO DAILY Apixaban [Eliquis] 5 mg PO BID Discharge Medication List Calcium/Magnesium/Zinc/Vitamin D 1 tab PO TID PRN 05/26/22 [History] Dapagliflozin Propanediol [Farxiga] 10 mg PO DAILY 05/26/22 [History] Digoxin [Lanoxin] 125 mcg PO DAILY 05/26/22 [History] Spironolactone [Aldactone] 25 mg PO DAILY 05/26/22 [History] Thiamine [Vitamin B-1] 100 mg PO DAILY 05/26/22 [History] Torsemide [Demadex] 20 mg PO BID 05/26/22 [History] guaiFENesin SYRUP 100MG/5ML [Robitussin] 200 mg PO Q4H PRN 05/26/22 [History] Acetaminophen [Tylenol 8 Hour] 650 mg PO Q6HR PRN #0 MDD 1950MG 05/30/22 [Rx] Nicotine 14Mg/24Hr Patch [Habitrol] 1 patch TRANSDERM DAILY patch 05/30/22 [Rx] Losartan [Cozaar] 12.5 mg PO HS #30 tab 05/31/22 [Rx] Metoprolol Succinate (ER) [Toprol XL] 25 mg PO DAILY #30 tab 05/31/22 [Rx] Rivaroxaban [Xarelto] 20 mg PO W/SUPPER #30 tab 05/31/22 [Rx] Follow up Appointment(s)/Referral(s): Nonstaff,Physician [Primary Care Provider] - 1-2 days Ambulatory/Diagnostic Orders: Basic Metabolic Panel [LAB.AMB] Time Frame: 3 Days, Location: None Selected Complete Blood Count w/diff [LAB.AMB] Time Frame: 3 Days, Location: None Selected Patient Instructions/Handouts: Anemia (DC) Activity/Diet/Wound Care/Special Instructions: Return to [facility] tomorrow. RN to call [phone] Ext. [phone] to notify [facility] staff when patient is ready for transport. Patient needs to follow up with her director community center Dr. Nikki Mark and Dr. Jacky Jimenez Discuss lifevest with director community center Recommend to follow up with SEED CLEANER Recommend to follow up with hematology Recommend to follow up with primary care provider in 1 to 2 days (Dr Lucia Bonner) Repeat labs CBC and BMP in 2 to 3 days Patient will be discharging back to [facility] Discharge Disposition: OTHER INSTITUTION NOT DEFINED
== END 2022-05-31 22:00 | disposition other institution (70) | DRG 760 ==
LOC: EC 14:29 → 3SCARD 21:40
PROVIDERS: ADMIT Hospitalist; ATTEND Hospitalist
PROC: 30233N1 Transfusion of Nonautologous Red Blood Cells into Peripheral Vein, Percutaneous Approach (ICD-10-PCS; principal; 2022-05-26)
DX: N92.0 Excessive and frequent menstruation with regular cycle (principal); D62 Acute posthemorrhagic anemia; D68.32 Hemorrhagic disorder due to extrinsic circulating anticoagulants; I50.42 Chronic combined systolic (congestive) and diastolic (congestive) heart failure; I42.8 Other cardiomyopathies; I08.1 Rheumatic disorders of both mitral and tricuspid valves; I51.3 Intracardiac thrombosis, not elsewhere classified; I95.9 Hypotension, unspecified; F15.10 Other stimulant abuse, uncomplicated; N93.8 Other specified abnormal uterine and vaginal bleeding; T45.515A Adverse effect of anticoagulants, initial encounter; Z71.6 Tobacco abuse counseling; F17.210 Nicotine dependence, cigarettes, uncomplicated; Z79.01 Long term (current) use of anticoagulants; Z79.83 Long term (current) use of bisphosphonates; Z79.1 Long term (current) use of non-steroidal anti-inflammatories (NSAID); Z79.899 Other long term (current) drug therapy; Z79.84 Long term (current) use of oral hypoglycemic drugs; N83.201 Unspecified ovarian cyst, right side; Z98.51 Tubal ligation status; Z91.199 Patient's noncompliance with other medical treatment and regimen due to unspecified reason; Z86.718 Personal history of other venous thrombosis and embolism
CPT/HCPCS: 36415; 71046; 76830; 80048; 80053; 80162; 81001; 81025; 82728; 83540; 83550; 83735; 83880; 84484; 85025; 85027; 86850; 86900; 86901; 86920; 87086; 93005; 93306; 93975; 93976; 94760; 96365; 96366; 99285